=== PATIENT | female | born 2000 | race Caucasian/White ===

== ENCOUNTER → 2020-08-17 14:07 | Outpatient (CLI) | payer OTHER, SELFPAY ==
--- NOTE | ~2020-08-17 | US_ITS ---
EXAMINATION: US pelvic complete w TV DATE: 08/17/2020 14:29 INDICATION: Irregular menstruation, unspecified. Pelvic pain. TECHNIQUE: Multiple transabdominal and transvaginal sonographic images of the pelvis were obtained. COMPARISON: None. FINDINGS: TRANSABDOMINAL ULTRASOUND: The uterus measures 7.9 x 2.7 x 3.3 cm. There is no free fluid in the pelvis. TRANSVAGINAL ULTRASOUND: The endometrial complex measures 7 mm in thickness. The right ovary measures 2.4 x 1.7 x 2.2 cm. The left ovary measures 1.8 x 1.7 x 2.0 cm. There is normal vascular flow in the ovaries. IMPRESSION: 1. Normal pelvis. Reviewed, dictated and finalized at location A. RINTENDENT COMPRESSOR STATIONS IMPRESSION: 1. Normal pelvis.
== END ==
PROVIDERS: Visit Provider Student in an Organized Health Care Education/Training Program
DX: N92.6 Irregular menstruation, unspecified (principal)
CPT/HCPCS: 76830; 76856

== ENCOUNTER 2024-10-29 11:29 | Outpatient (CLI) | payer OTHER, SELFPAY ==
[2024-10-29 12:23] LABS: Hemoglobin A1C 7.2 % (<5.7)
[2024-10-29 12:34] LABS: Vitamin D 25 Hydroxy 25.3 ng/mL
--- OUTSIDE RECORDS SUMMARY | 2024-10-29 12:49 | XMS_ITS | Clinical Summary ---
Author Organization [facility] [employer] Address [address] [place] [address] Care Team Providers Care Shank Rander Name Role Phone Jamie Casper DO Primary Care Provider [phone] Source Comments [facility],non-owned Affiliates and Associated Physician Practices is amultiple site organization consisting of ambulatory clinics and hospital sitesin [place], [place], [place] and [place]. This disclosure is being madepursuant to the Care Everywhere program and may not contain all information available regarding this patient. Last updated 18.[facility] [employer] Allergies No known active allergies Medications * Be aware that medications may not be up to date on this document. Alwaysverify current medications with the patient. Medication Sig Dispensed Refills Start Date End Date Status Jornajacoby PM 100 MG CP24 TAKE 1 CAPSULE BY MOUTH EVERY DAY AT BEDTIME 10/11/2023 Active traZODone (Desyrel) 150 MG tablet Take 1 (one) tablet by mouth 09/12/2023 Active Auvelity 45-105 MG TBCR Take 1 (one) tablet by mouth 2 times daily 09/13/2023 Active Rexulti 1 MG tablet Take 1 (one) tablet by mouth once daily 10/10/2023 Active desmopressin (DDAVP) 0.2 MG tablet Take 2 (two) tablets by mouth at bedtime 09/26/2023 Active lisinopril (Prinivil; Zestril) 10 MG tablet 08/21/2023 Active amLODIPine (Norvasc) 10 MG tablet 07/29/2023 Active prazosin (Minipress) 5 MG capsule TAKE 1 CAPSULE BY MOUTH EVERY DAY AT BEDTIME 09/26/2023 Active prazosin (Minipress) 2 MG capsule 10/16/2023 Active propranolol (Inderal) 20 MG tablet Take 1 (one) tablet by mouth 2 times daily 10/11/2023 Active levonorgestrel (Mirena) 20 MCG/DAY IUD by Intrauterine route as directed Active HYDROcodone-acetam inophen (Carlton) 5-325 MG tabletIndications: S/P placement of VNS (vagus nerve stimulation) device Take 1 (one) tablet by mouth every 6 hours as needed for Pain 20 tablet 11/14/2023 Active Active Problems Problem Noted Date Diagnosed Date Allergic rhinitis 11/12/2023 11/12/2023 Overview (11/12/2023): take medications as prescribed. follow up if symtpms worsening, not controlled, other concerns. Arthralgia of elbow 11/12/2023 11/12/2023 Atopic dermatitis 11/12/2023 11/12/2023 Benign neoplasm of skin 11/12/2023 11/12/19 24 Overview (11/12/2023): offered cosmetic removal but asserted that it must be the child who desires removal. she must understand that a needle will be used to anesthetize the area, the area will be removed and sutured closed. there will be a scar which may be more obvious than the benign appearly nevus. Child decided to wait. Diurnal only enuresis 11/12/2023 11/12/2023 Overview (11/12/2023): Urgency incontinence vs. Infrequent voider Bladder stretching exercises discussed as well as possible use of Oxybutinin. Will pursue renal U/S and VCUG. 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 11/12/2023 Finding of above normal blood pressure 4 11/12/2023 Hyperopia 11/12/2023 11/12/2023 Obesity 11/12/2023 11/12/2023 Regular astigmatism 11/12/2023 11/12/2023 Suppurative otitis media of right ear 11/12/2023 11/12/2023 Overview (11/12/2023): reassure. continue augmentin as prescribed and begin floxin. suggest motrin and or warm compress for comfort and return to clinic after completion of medication course if no improvement. Tooth pain 11/12/2023 11/12/2023 Depression with anxiety 10/18/2023 10/18/19 24 Disruptive behavior disorder 10/18/2023 Overview (11/12/2023): child with trouble sleeping, has worsened since father deployed and started on wellbutrin and concerta. It is likely the medication + father leaving that has created this situation as opposed to an underlying problem that needs treatment. will not order reviewed [facility] rating scales, other information provied by teachers, parents at [facility]. Scores are not consistnent with ADHD nor is desription of child's behaviors. Rather, she seems to demonstatte a significant amount of negative attention seekin Episode of recurrent major depressive disorder 0 10/18/2023 Social History Tobacco Use Types Packs/Day Years Used Date Smoking Tobacco: Never Smokeless Tobacco: Never Tobacco Cessation:Counseling Given: No Alcohol Use Standard Drinks/Week Comments Not Currently 0 (1 standard drink = 0.6 oz pur e alcohol) AUDIT-C Answer Date Recorded Q1: How often do you have a drink containing alcohol? Never 11/14/2023 Q2: How many drinks containi ng alcohol do you have on a typical day when you are drinking? Patient does not drink Q3: How often do you have si x or more drinks on one occasion? Never 11/14/2023 Sex and Gender Information Value Date Recorded Sex Assigned at Female 10/23/2023 10:53 AM INSTRUCTIONAL DESIGN SPECIALIST Gender Identity Female 10/23/2023 10:53 AM INSTRUCTIONAL DESIGN SPECIALIST Sexual Orientation Lesbian 10/23/2023 10 :53 AM INSTRUCTIONAL DESIGN SPECIALIST Last Filed Vital Signs Vital Sign Reading Time Taken Comments Blood Pressure 113/81 11/29/2023 9:34 AM INSTRUCTIONAL DESIGN SPECIALIST Pulse 88 11/29/2023 9:34 AM INSTRUCTIONAL DESIGN SPECIALIST Temperature 36.6 ??C (97.9 ??F) 11/29/2023 9:34 AM CS T Respiratory Rate 18 11/29/2023 9:34 AM INSTRUCTIONAL DESIGN SPECIALIST Oxygen Saturation 97% 11/29/2023 9:34 AM INSTRUCTIONAL DESIGN SPECIALIST Inhaled Oxygen Concentration - - Weight 114 kg (251 lb 6.4 oz) 11/29/2023 9:34 AM INSTRUCTIONAL DESIGN SPECIALIST Height 154.9 cm (5' 1 ) 11/29/2023 9:34 AM INSTRUCTIONAL DESIGN SPECIALIST Body Mass Index 47.5 11/29/2023 9:34 AM INSTRUCTIONAL DESIGN SPECIALIST Plan of Treatment Health Maintenance Due Date Last Done Comments PAP SMEAR 1998 HIV SCREENING 2013 HPV VACCINE (1 - 3-dose series) 2013 HEPATITIS C SCREENING 03/22/2016 DTAP/TDAP/TD VACCINES (1 - Tdap) 2017 HEPATITIS B VACCINE (1 of 3 - 19+ 3-dose series) 2017 COVID-19 VACCINE ( - 2023-2 5 season) 2024 INFLUENZA VACCINE (#1) 2024 DEPRESSION SCREENING 10/01/2024 ZOSTER VACCINE (1 of 2) 2048 HIB VACCINE Aged Out No longer eligi ble based on patient's age to complete this topic MENINGOCOCCAL (Group B) VACCINE Aged Out No longer eligible based on patient's age to complete this topic MENINGOCOCCAL VACCINE Aged Out No vernell danish eligible based on patient's age to complete this topic PNEUMOCOCCAL VACCINE Aged Out No long er eligible based on patient's age to complete this topic Medical Devices Implanted Type Area Entry Operator Device Identifier Shelf Expiration Date Model / Serial / Lot Vns Therapy: Symmetry Implanted:Qty: 1 on 11/14/2023 by Domenico Connolly MD at [facility] Implant Non-Ortho Left: Chest [employer] 10/25/2024 [id number] / [id number] / N/A Description:VNS GENERATOR GMDN: [id number] Lead Nrstm 43cm 2mm Vns Perenniaflex - [id number] Implanted:Qty: 1 on 11/14/2023 by Domenico Connolly MD at [facility] Left: Chest [employer] 304-20 / [id number] / Care Teams Shank Rander Relationship Specialty Start Date End Date Jamie Casper DO PCP - General Family Medicine 10/18/23
--- OUTSIDE RECORDS SUMMARY | 2024-10-29 12:49 | XMS_ITS | Clinical Summary ---
Author Organization [employer] Address [address] [place] [address] Care Team Providers Care Specifications Writer Name Role Phone Jamie Casper DO Primary Care Provider Allergies No known active allergies Medications atenoloL (TENORMIN) 25 mg tablet Active lamoTRIgine (LaMICtal) 200 mg tablet Take 200 mg by mouth 2 (two) times a day Active prazosin (MINIPRESS) 1 mg capsule Take 1 mg by mouth daily Active risperiDONE (RisperDAL) 1 mg tablet Active traZODone (DESYREL) 50 mg tablet Active venlafaxine XR (EFFEXOR-XR) 150 mg 24 hr capsule Active Jornay PM 100 mg capsule,del rel,ext rel sprink TAKE 1 CAPSULE BY MOUTH EVERY DAY AT BEDTIME 024 Active Auvelity 45-105 mg tablet, IR & ER, biphasic Take 1 tablet by mouth 2 (two) times a day [address] (CYMBALTA) 60 mg capsule Take 1 capsule (60 mg total) by mouth daily 10/14/2 022 Active Rexulti 1 mg tablet Take 1 tablet (1 mg total) by mouth daily Active levonorgestreL (Mirena) IUD 1 Intra Uterine Device by intrauterine route once Active lisinopriL (PRINIVIL,ZESTRIL ) 10 mg tablet Take 1 tablet (10 mg total) by mouth daily Active methylphenidate HCl (Jornay PM) 60 mg capsule,del rel,ext rel sprink Take by mouth Active propranoloL (INDERAL) 20 mg tablet Take 1 tablet (20 mg total) by mouth 2 (two) times a day Active cetirizine (ZyrTEC) 10 mg tablet Take 1 tablet (10 mg total) by mouth daily Active ondansetron ODT (ZOFRAN-ODT) 4 mg disintegrating tablet Active prazosin (MINIPRESS) 5 mg capsule Active prazosin (MINIPRESS) 2 mg capsule TAKE 2 CAPSULES AT BEDTIME ORALLY ONCE A DAY. TAKE WITH 5MG CAPSULE FOR 30 DAYS Active traZODone (DESYREL) 100 mg tablet Active galcanezumab-gnlm 120 mg/mL pen injector Inject 120 mg under the skin every 30 (thirty) days 1 mL 5 Active rizatriptan POSTING CLERK (MAXALT-POSTING CLERK) 10 mg disintegrating tabletIndications :Migraine Take 1 tablet (10 mg total) by mouth once as needed for migraine May repeat in 2 hours if unresolved. Do not exceed 30 mg in 24 hours. 9 tablet 5 024 2024 Active ubrogepant (UBRELVY) 100 mg tablet Take 1 tablet (100 mg total) by mouth once as needed for migraine May repeat dose once in 2 hours if no relief. Do not exceed 2 doses in 24 hours. 10 tablet 5 024 2024 Active ubrogepant (Ubrelvy) 100 mg tablet Take 1 tablet (100 mg total) by mouth once as needed for migraine May repeat dose once in 2 hours if no relief. Do not exceed 2 doses in 24 hours. 10 tablet 7 024 2024 Active benzonatate (TESSALON) 100 mg capsuleIndication s:Cough Take 1 capsule (100 mg total) by mouth every 8 (eight) hours 21 capsule 024 Active amLODIPine (NORVASC) 10 mg tablet TAKE 1 TABLET(10 MG) BY MOUTH DAILY 100 tablet 025 Active desmopressin (DDAVP) 0.2 mg tablet TAKE 2 TABLETS(0.4 MG) BY MOUTH DAILY 180 tablet 025 Active amLODIPine (NORVASC) 10 mg tablet TAKE 1 TABLET(10 MG) BY MOUTH DAILY 100 tablet 024 2024 Discontinued desmopressin (DDAVP) 0.2 mg tablet TAKE 2 TABLETS(0.4 MG) BY MOUTH DAILY 180 tablet 024 2024 Discontinued Active Problems Problem Noted Date Diagnosed Date Enuresis 01/09/2024 Routine physical examination 01/09/2024 Overview (01/09/2024): January 26, 2023 Migraine without aura and wi thout status migrainosus, not intractable 01/09/2024 Morbid obesity with BMI of 45.0-49.9, adult 12/31 Overview (01/09/2024): BMI 45 Weight management discussed Essential hypertension 09/25/2019 Overview (01/09/2024): Chronic, stable condition on Norvasc Continue same medications Primary insomnia 09/17/2019 Depression with anxiety 08/14/2013 Overview (01/09/2024): Management and medication refills are per Psychiatry Attention deficit hyperactivity disorder (ADHD) 08/14/2013 Resolved Problems Problem Noted Date Diagnosed Date Resolved Date Non-recurrent acute suppurat rex otitis media of right ear without spontaneous rupture of tympanic membrane 09/02/2020 01/09/2024 Bone neoplasm 10/28/2013 01/09/2024 Encounters Date Type Department Care Team Description 09/15/2024 7:51 PM CURATOR HERBARIUM - 09/15/2024 10:17 PM [facility] Emergency [facility] Emergency Department [address] [place] [id number] COVID-19 (Primary Dx) Discharge Disposition: Discharge to home or self care 08/20/2024 3:00 PM CURATOR HERBARIUM Office Visit [facility] [address] [place] [phone] Leann Clark NP Migraine without aura and without status migrainosus, not intractable (Primary Dx) 08/19/2024 Telephone [facility] [address] [place] [phone] Leann Clark NP Prior Auth (Ubrelvy 100mg) from Last 3 Months Immunizations Name Administration Dates Next Due Influenza LAIV (Nasal) 07/30/2023 Influenza, Quadrivalent, Rec ombinant, Egg Free, Preservative Free, Intramuscular 07/27/2022,08/06/2020 Meningococcal MCV4, Unspecified 06/14/2015 Surgical History Surgery Date Site/Laterality Comments WISDOM TOOTH EXTRACTION MYRINGOTOMY W/ TUBES ADENOIDECTOMY W/ MYRINGOTOMY AND TUBES Medical History Medical History Date Comments Allergic rhinitis Anxiety Depression PTSD (post-traumatic stress disorder) Adhd Hypertension Social History Tobacco Use Types Packs/Day Years Used Date Smoking Tobacco: Never Smokeless Tobacco: Never PHQ-2 Answer Date Recorded PHQ-2 Total Score (If total score is 3 or more points, staff should administer the PHQ-9) 2 01/09/2024 Personal Safety Answer Date Recorded Have you ever been in or are you currently in a harmful physical or emotional relationship or is someone making you feel afraid or unsafe? Denies 09/15/2024 Comments No Sex and Gender Information Value Date Recorded Sex Assigned at Not on file Legal Sex Female 10:41 AM CURATOR HERBARIUM Gender Identity Female 01/08/2024 10:05 AM CDT Sexual Orientation Lesbian 01/08/2024 10 :05 AM CDT Obstetrics History Last Filed Vital Signs Vital Sign Reading Time Taken Comments Blood Pressure 140/88 09/15/2024 10:15 PM CURATOR HERBARIUM Pulse 110 09/15/2024 10:15 PM CURATOR HERBARIUM Temperature 37.7 ??C (99.9 ??F) 09/15/2024 1 0:15 PM CURATOR HERBARIUM Respiratory Rate 18 09/15/2024 10:1 5 PM CURATOR HERBARIUM Oxygen Saturation 97% 09/15/2024 10: 15 PM CURATOR HERBARIUM Inhaled Oxygen Concentration - - Weight 120.7 kg (266 lb 1.5 oz) 09/15/2024 8:06 PM CURATOR HERBARIUM Height 158.8 cm (5' 2.5 ) 08/20/2024 3:00 PM CURATOR HERBARIUM Body Mass Index 47.89 08/20/2024 3:00 PM CURATOR HERBARIUM Plan of Treatment Health Maintenance Due Date Last Done Comments Cervical Cancer Screening 1998 DTaP/Tdap/Td Vaccine (1 - Tdap) 2009 HPV Vaccines (1 - 3-dose series) 2013 Hepatitis B Screening 2016 Regular Well Visit/Exam 18-64 2016 Varicella Vaccines (1 of 2 - 13+ 2-dose series) 08/27/2023 Covid-19 Vaccine (3 - 2023-2 5 season) 2024 01/04/2021, 12/14/2020 Influenza Vaccine (#1) 2024 , 07/27/2022, 08/06/2020 Depression Screening 01/08/2025 01/09/2024 Hepatitis C Screening Completed 01/11/2024 Pneumococcal vaccine <65 Aged Out No longer eligible based on patient's age to complete this topic Procedures Procedure Name Priority Date/Time Associated Diagnosis Comments INFLUENZA A/B, RSV, AND COVID-19 PCR STAT 09/15/2024 8:11 PM CURATOR HERBARIUM HEPATITIS C ANTIBODY Routine 01/11/2024 11:50 AM CDT Need for hepatitis C screening test from Last 3 Months or Most Recently Relevant to Health Maintenance Results * (ABNORMAL) Influenza A/B, RSV, and COVID-19 PCR Nasopharyngeal (09/15/2024 8:11 PM CURATOR HERBARIUM) COVID-19 RNA Positive(A) Negative Comment:Testing performed by : [address] [id number] Influenza A RNA Negative Negative IAN Comment:Testing performed by : [address] [address] Influenza B RNA Negative Negative IAN Comment:Testing performed by : [address] [place]., [address] RSV RNA Negative Negative IAN HUGHES Comment: Interpretive data: Testing performed by [facility]. This test is performed using the [employer] Xpert Xpress CoV-2/Flu/RSV plus assay. This is a multiplex, real-time reverse transcriptase PCR assay intended for the qualitative detection of nucleic acid from SARS-CoV-2, influenza A, influenza B, and respiratory syncytial virus. This assay has been cleared by the [place] Food and Drug administration. The performance characteristics have been verified by the [facility]. ??Results must be considered in the clinical context, and a negative result does not rule out infection. Interpretive Data last revised 2023 Testing performed by: [address] [address] Nasopharyngeal 09/15/2024 8: 11 PM CURATOR HERBARIUM 09/15/2024 8:19 PM CURATOR HERBARIUM Narrative IAN - 09/15/2024 9:01 PM CURATOR HERBARIUM Is the Patient experiencing symptoms consistent with COVID?->Yes Brenda ALMEIDA LAB MICROBIOLOGY - GENERAL OR DERABLES Final Result IAN [id number] [facility] Department [place] [address] * Hepatitis C antibody Blood (01/11/2024 11:50 AM CDT) Pathologist [facility] Hep C Ab Nonreactive Nonreactive Comment: Antibodies to HCV not detected. Does NOT exclude the possibility of recent exposure to HCV. Current interpretive data was last revised on 22 Interpretive Data Nonreactive: Antibodies to HCV not detected. Does NOT exclude the possibility of recent exposure to HCV. Equivocal: Equivocal for HCV antibodies. Supplemental molecular testing will be automatically performed to determine infection status in accordance with current CDC screening recommendations. ?? Reactive: Positive for HCV antibodies. ??This may represent current or past HCV infection. Supplemental molecular testing will be automatically performed to determine ??current infection status in accordance with current CDC screening recommendations. Interpretive data was last revised on 2019. Blood 01/11/2024 11:5 0 AM CDT 01/11/2024 4:29 PM CDT us Jamie Casper DO LAB MICROBIOLOGY - GEN ERAL ORDERABLES Final Result Performing Organization Address City/State/[facility] Co wy Phone Number [facility] [address] [facility] [place] [address] from Last 3 Months or Most Recently Relevant to Health Maintenance Insurance [facility] H[facility]/PPO Address: [address] [address] [place] [address] [employer] ([employer]) FOR LIFE [facility] [employer] [facility]/PPO Address: [place] [address] Care Teams Specifications Writer Relationship Specialty Start Date End Date Jamie Casper DO PCP - General Family Practice 08/18/20
--- OUTSIDE RECORDS SUMMARY | 2024-10-29 12:49 | XMS_ITS | Referral Summary ---
Author Organization [facility] [address] [place] [address] Care Team Providers Care Credit Report Checker Name Role Phone Jamie Casper DO Primary Care Provider Encounters Date Type Department Care Team Description 09/15/2024 7:51 PM POLICE OFFICER CRIME PREVENTION - 09/15/2024 10:[address] [facility] Emergency [facility] Emergency Department [facility] [place] [address] COVID-19 (Primary Dx) Discharge Disposition: Discharge to home or self care 08/20/2024 3:00 PM POLICE OFFICER CRIME PREVENTION Office Visit [facility] [address] [place] [address] [phone] Leann Clark NP Migraine without aura and without status migrainosus, not intractable (Primary Dx) 08/19/2024 Telephone [facility] [address] [place] [address] [phone] Leann Clark NP Prior Auth (Ubrelvy 100mg) from Last 3 Months Allergies No known active allergies Medications atenoloL (TENORMIN) 25 mg tablet 020 Active lamoTRIgine (LaMICtal) 200 mg tablet Take [...] CAPSULE BY MOUTH EVERY DAY AT BEDTIME Active Auvelity 45-105 mg tablet, IR & ER, biphasic Take 1 tablet by mouth 2 (two) times a day Active DULoxetine DR (CYMBALTA) 60 mg capsule Take 1 capsule (60 mg total) by mouth daily Active Rexulti 1 mg tablet Take 1 [...] (thirty) days 1 mL 5 Active rizatriptan SWITCHBOARD OPERATOR ASSISTANT (MAXALT-SWITCHBOARD OPERATOR ASSISTANT) 10 mg disintegrating tabletIndications :Migraine Take 1 [...] membrane 09/02/2020 01/09/2024 Bone neoplasm 10/28/2013 01/09/2024 Immunizations Name Administration Dates Next Due Influenza LAIV (Nasal) 07/30/2023 Influenza, Quadrivalent, Rec ombinant, Egg Free, Preservative Free, Intramuscular 07/27/2022,08/06/2020 Meningococcal MCV4, Unspecified 06/14/2015 Social History Tobacco Use Types Packs/Day Years [...] on file Legal Sex Female 10:41 AM POLICE OFFICER CRIME PREVENTION Gender Identity Female 01/08/2024 10:05 AM CDT Sexual Orientation Lesbian 01/08/2024 10 :05 AM CDT Last Filed Vital Signs Vital Sign Reading Time Taken Comments Blood Pressure 140/88 09/15/2024 10:15 PM POLICE OFFICER CRIME PREVENTION Pulse 110 09/15/2024 10:15 PM POLICE OFFICER CRIME PREVENTION Temperature 37.7 ??C (99.9 ??F) 09/15/2024 1 0:15 PM POLICE OFFICER CRIME PREVENTION Respiratory Rate 18 09/15/2024 10:1 5 PM POLICE OFFICER CRIME PREVENTION Oxygen Saturation 97% 09/15/2024 10: 15 PM POLICE OFFICER CRIME PREVENTION Inhaled Oxygen Concentration - - Weight 120.7 kg (266 lb 1.5 oz) 09/15/2024 8:06 PM POLICE OFFICER CRIME PREVENTION Height 158.8 cm (5' 2.5 ) 08/20/2024 3:00 PM POLICE OFFICER CRIME PREVENTION Body Mass Index 47.89 08/20/2024 3:00 PM POLICE OFFICER CRIME PREVENTION Plan of Treatment Not on file Procedures Procedure Name Priority Date/Time Associated Diagnosis Comments INFLUENZA A/B, RSV, AND COVID-19 PCR STAT 09/15/2024 8:11 PM POLICE OFFICER CRIME PREVENTION HEPATITIS C ANTIBODY Routine 01/11/2024 11:50 AM CDT Need for hepatitis C screening test from Last 3 Months or Most Recently Relevant to Health Maintenance Results * (ABNORMAL) Influenza A/B, RSV, and COVID-19 PCR Nasopharyngeal (09/15/2024 8:11 PM POLICE OFFICER CRIME PREVENTION) COVID-19 RNA Positive(A) Negative Comment:Testing performed by : [address] [id number] Influenza A RNA Negative Negative [facility] Comment:Testing performed by : [address] [address] Influenza B RNA Negative Negative [facility] Comment:Testing performed by : [address] [address] RSV RNA Negative Negative [facility] Comment: Interpretive data: Testing performed by [facility]. This test is performed using the [employer] Xpert Xpress CoV-2/Flu/RSV plus assay. This is a multiplex, real-time reverse transcriptase PCR assay intended for the qualitative detection of nucleic acid from SARS-CoV-2, influenza A, influenza B, and respiratory syncytial virus. This assay has been cleared by the [place] Food and Drug administration. The performance characteristics have been verified by the [facility]. ??Results must be considered in the clinical context, and a negative result does not rule out infection. Interpretive Data last revised 2023 Testing performed by: [address] [address] Nasopharyngeal 09/15/2024 8: 11 PM POLICE OFFICER CRIME PREVENTION 09/15/2024 8:19 PM POLICE OFFICER CRIME PREVENTION Narrative IAN - 09/15/2024 9:01 PM POLICE OFFICER CRIME PREVENTION Is the Patient experiencing symptoms consistent with COVID?->Yes Brenda ALMEIDA LAB MICROBIOLOGY - GENERAL OR DERABLES Final Result Performing Organization Address City/[facility]/ZIP Co de Phone Number IAN [address] [place] [address] * Hepatitis C antibody Blood (01/11/2024 11:50 AM CDT) Hep C Ab Nonreactive Nonreactive Comment: Antibodies [...] 0 AM CDT 01/11/2024 4:29 PM CDT Jamie Casper DO LAB MICROBIOLOGY - GEN ERAL ORDERABLES Final Result Performing Organization Address [facility] Co de Phone Number IAN [address] [place] [address] from Last 3 Months or Most Recently Relevant to Health Maintenance Insurance [facility] CHO[facility] PL[facility] FOR LIFE [facility] CHO[facility] PLUS Care Teams Credit Report Checker Relationship Specialty Start Date End Date Jamie Casper DO PCP - General Family Practice 08/18/20
--- OUTSIDE RECORDS SUMMARY | 2024-10-29 12:49 | XMS_ITS | Referral Summary ---
Author Organization [facility] [employer] Address [address] [place] [address] Care Team Providers Care Geospatial Technician Name Role Phone Jamie Casper DO Primary Care Provider [phone] [facility],non-owned Affiliates and Associated Physician Practices is amultiple site organization consisting of ambulatory clinics and hospital sitesin [place], [place], [place] and [place]. This disclosure is being madepursuant to the Care Everywhere program and may not contain all information available regarding this patient. Last updated 18.[facility] [employer] Allergies No known active allergies Medications * [...] Intrauterine route as directed Active HYDROcodone-acetam inophen ([place]) 5-325 MG tabletIndications: S/P placement of VNS [...] that needs treatment. will not order reviewed [facility] rating scales, other information provied by teachers, parents at [facility]. Scores are not consistnent with ADHD nor [...] Sex Assigned at Female 10/23/2023 10:53 AM GAS JOCKEY Gender Identity Female 10/23/2023 10:53 AM GAS JOCKEY Sexual Orientation Lesbian 10/23/2023 10 :53 AM GAS JOCKEY Last Filed Vital Signs Vital Sign Reading Time Taken Comments Blood Pressure 113/81 11/29/2023 9:34 AM GAS JOCKEY Pulse 88 11/29/2023 9:34 AM GAS JOCKEY Temperature 36.6 ??C (97.9 ??F) 11/29/2023 9:34 AM CS T Respiratory Rate 18 11/29/2023 9:34 AM GAS JOCKEY Oxygen Saturation 97% 11/29/2023 9:34 AM GAS JOCKEY Inhaled Oxygen Concentration - - Weight 114 kg (251 lb 6.4 oz) 11/29/2023 9:34 AM GAS JOCKEY Height 154.9 cm (5' 1 ) 11/29/2023 9:34 AM GAS JOCKEY Body Mass Index 47.5 11/29/2023 9:34 AM GAS JOCKEY Plan of Treatment Not on file Medical Devices Implanted Type Area Income Tax Analyst Device Identifier Shelf Expiration Date Model / Serial / Lot Vns Therapy: Symmetry Implanted:Qty: 1 on 11/14/2023 by Domenico Connolly MD at [facility] Implant Non-Ortho Left: Chest [employer] 10/25/2024 [id number] / [id number] / N/A Description:VNS GENERATOR GMDN: [id number] Lead Nrstm 43cm 2mm Vns Perenniaflex - [id number] Implanted:Qty: 1 on 11/14/2023 by Domenico Connolly MD at [facility] Left: Chest [employer] 304-20 / [id number] / Care Teams Geospatial Technician Relationship Specialty Start Date End Date Jamie Casper DO PCP - General Family Medicine 10/18/23
--- OUTSIDE RECORDS SUMMARY | 2024-10-29 12:49 | XMS_ITS | Clinical Summary ---
Author Organization [facility] Address Formerly [facility] [place] [address] [place] [address] Care Team Providers Care Geology Professor Name Role Phone Jamie Casper DO Primary Care Provider Allergies No known active allergies Medications levonorgestrel (MIRENA, 52 MG,) 20 MCG/24HR IUD 1 Intra Uterine Device by Intrauterine route once. Active propranolol (INDERAL) 10 MG tablet 1 tablet 2 (two) times daily. 07/22/20 Active prazosin (MINIPRESS) 1 MG capsule Take 1 mg by mouth nightly at bedtime. 07/14/20 Active prazosin (MINIPRESS) 5 MG capsule Take 9 mg by mouth nightly at bedtime. 07/22/20 22 Active traZODone (DESYREL) 150 MG tablet 0.5 tablets (75 mg total) nightly at bedtime. 07/22/20 Active Methylphenidate HCl ER, PM, (JORNAY PM) 60 MG CAPSULE SR 24 HR Take 100 mg by mouth. Active amLODIPine (NORVASC) 10 MG tabletIndications: Essential hypertension TAKE 1 TABLET(10 MG) BY MOUTH DAILY 90 tablet 1 04/16/20 23 Active desmopressin (DDAVP) 0.2 MG tabletIndications: Enuresis TAKE 2 TABLETS BY MOUTH AT BEDTIME 180 tablet 1 04/16/20 Active REXULTI 0.5 MG tablet Take 2 tablets (1 mg total) by mouth daily. 06/15/20 Active Dextromethorphan-b uPROPion ER (AUVELITY) 45-105 MG Tab CR Take 150 mg by mouth 2 (two) times a day. Active rizatriptan (MAXALT-MACHINE HEEL BUILDER) 5 MG disintegrating tablet Take 1 tablet (5 mg total) by mouth as needed for Migraine. May repeat in 2 hours if needed Active cetirizine (ZYRTEC) 10 MG tablet Take 1 tablet (10 mg total) by mouth daily. 30 tablet 01/24/20 Active Additional Information Patient not taking.Reported on 04/12/2024 fluticasone propionate (FLONASE) 50 MCG/ACT nasal spray 1 spray by Each Nostril route daily. 18.2 mL 01/24/20 Active Additional Information Patient not taking.Reported on 04/12/2024 ondansetron (ZOFRAN-ODT) 4 MG disintegrating tablet Take 1 tablet (4 mg total) by mouth every 8 (eight) hours as needed. 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 Enuresis 09/06/2015 Allergic rhinitis 08/14/2013 Attention deficit hyperactivity disorder (ADHD) 08/14/2013 Depression with anxiety 08/14/2013 Eczema 08/14/2013 Resolved Problems Problem Noted Date Diagnosed Date Resolved Date Encounter for preventive health examination 08/14/2013 06/11/2020 Encounters Date Type Department Care Team Description 08/12/2024 10:47 AM WELL BLOWER - 08/12/2024 12:14 PM WELL BLOWER Hospital Encounter [facility] Care [facility] [place] [address] Alicia Sauceda, DATA CENTER TECHNICIAN Headache Discharge Disposition: Home or Self Care (Routine Discharge) 08/12/2024 Travel from Last 3 Months Immunizations Name Administration Dates Next Due Flublok (Quadrivalent) 07/27/2022,08/06/2020 Meningococcal Vac A,C,Y,W-135 Sc 06/14/2015 Family History Medical History Relation Comments Hypertension Father Hypertension Maternal Grandfather Diabetes Maternal Grandmother Cancer Mother cervical or ovar krystle Hypertension Mother Coronary artery disease Paternal Grandfather ID Paternal Grandfather Relation Status Comments Father Alive Maternal Grandfather Maternal Grandmother Mother Alive Paternal Grandfather Social History Tobacco Use Types Packs/Day Years Used Date Smoking Tobacco: Former Passive Smoke Exposure: Never Smokeless Tobacco: Never Tobacco Cessation:Counseling Given: Not Answered Alcohol Use Standard Drinks/Week Comments Yes 0 (1 standard drink = 0.6 oz pur e alcohol) rare use PHQ-2 Answer Date Recorded Patient Health Questionnaire-2 Score 2 01/26/2023 Comments No Sex and Gender Information Value Date Recorded Sex Assigned at Not on file Legal Sex Female 7:39 PM CDT Gender Identity Female 06/16/2022 5:37 AM CDT Sexual Orientation Lesbian or Carey 06/16/2022 5: 37 AM CDT Last Filed Vital Signs Vital Sign Reading Time Taken Comments Blood Pressure 134/90 08/12/2024 10:51 AM WELL BLOWER Pulse 112 08/12/2024 10:51 AM WELL BLOWER Temperature 36.7 ??C (98 ??F) 08/12/2024 10:51 AM WELL BLOWER Respiratory Rate 18 08/12/2024 10:51 AM WELL BLOWER Oxygen Saturation 99% 08/12/2024 10:51 AM WELL BLOWER Inhaled Oxygen Concentration - - Weight 108.9 kg (240 lb) 08/12/2024 10:51 AM WELL BLOWER Height 160 cm (5' 3 ) 08/12/2024 10:51 AM WELL BLOWER Body Mass Index 42.51 08/12/2024 10:51 AM WELL BLOWER Plan of Treatment Health Maintenance Due Date Last Done Comments Cervical Cancer Screening Pap Smear (Age 21 to 29) Every 3 Years 1998 Cervical Cancer Screening 1998 HPV Vaccines (1 - 3-dose series) 2013 DTaP, Tdap and Td Vaccines (1 - Tdap) 2017 Hepatitis B Vaccines (1 of 3 - 19+ 3-dose series) 2017 Annual Physical 01/27/2024 01/26/2023, 11/02, 10/20/2020, Additional history exists COVID-19 Vaccine ( season) 2024 01/04/2021, 12/14/2020 Influenza Adult (#1) 2024 07/30/2023, 07/27/2022, 08/06/2020 Meningococcal Vaccine Aged Out 06/14/2015 No vernell danish eligible based on patient's age to complete this topic Hepatitis C Completed 01/11/2024 Meningococcal B Vaccine Aged Out No l onger eligible based on patient's age to complete this topic Pneumococcal Vaccine: Pediatrics (0 to 5 Years) and At-Risk Patients (6 to 64 Years) Aged Out No longer eligible based on patient's age to complete this topic RSV Immunizations Under 20 Months Aged Out No longer eligible based on patient's age to complete this topic Insurance [facility] Care Teams Geology Professor Relationship Specialty Start Date End Date Jamie Casper DO PCP - General 08/20/15
--- OUTSIDE RECORDS SUMMARY | 2024-10-29 12:49 | XMS_ITS | Patient Health Record ---
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 Name Role Phone Jamie Casper DO Primary Care Provider Paddy Santos Unavailable [phone] Briana Grant Unavailable [phone] Migration, Provider Unavailable Unavailable Allergies No Known Allergies Results Component Value Reference Range Notes DRUG SCREEN, 14 DRUGS (DETEC TIMED), URINE Reviewed date:11/07/2023 12:00:00 AM Interpretation: Performing Lab: Notes/Report: Amphetamine negative Barbiturates negative Benzodiazipine negative Buprenorphine negative Cocaine negative MDMA/Ectasy negative Methadone negative Methamphetamine negative Morphine negative note ALL NEGATIVE Oxycodone negative Phenocyclidine negative THC negative DRUG SCREEN, 14 DRUGS (DETEC TIMED), URINE Reviewed date:12/05/2023 12:00:00 AM Interpretation: Performing Lab: Notes/Report: Amphetamine negative Barbiturates negative Benzodiazipine negative Buprenorphine negative Cocaine negative MDMA/Ectasy negative Methadone negative Methamphetamine negative Morphine negative note ALL NEGATIVE Oxycodone negative Phenocyclidine negative THC negative UDT Reviewed date:03/14/2024 09:24:04 AM Interpretation: Performing Lab: Notes/Report: THC negative 0 - 50 ng/ml Cocaine negative Amphetamine negative Buprenorphine (BUP) negative Secobarbital (Bar) negative Oxazepam (BZO) negative 8-qcnbeowfan-9,4-kcjynogn-9, 3-diphenylpyrrolidine (EDDP) negative Methamphetamine (MET) negative Methylenedioxymethamphetamine (MDMA) negative Morphine (MOP 300/[id number]) negative Methadone (MTD) negative Phencyclidine (PCP) negative Propoxyphene (PPX) negative Nortriptyline (TCA) negative UDT Reviewed date:05/09/2024 11:56:01 AM Interpretation: Performing Lab: Notes/Report: THC N 0 - 50 ng/ml Cocaine N 0 - 300 ng/ml Amphetamine N 0 - 1000 ng/ml Buprenorphine (BUP) N 0 - 10 ng/ml Secobarbital (Bar) N 0 - 300 ng/ml Oxazepam (BZO) N 0 - 300 ng/ml 0-gnrjbdflfi-7,8-vmdhnnas-6, 3-diphenylpyrrolidine (EDDP) N 0 - 300 ng/ml Methamphetamine (MET) N 0 - 1000 ng/ml Methylenedioxymethamphetamine (MDMA) N 0 - 500 ng/ml Morphine (MOP 300/[id number]) N 0 - 300 ng/ml Methadone (MTD) N 0 - 300 ng/ml Phencyclidine (PCP) N 0 - 25 ng/ml Propoxyphene (PPX) N 0 - 300 ng/ml Nortriptyline (TCA) N 0 - 1000 ng/ml Oxycodone N 0 - 300 ng/ml Reason For Referral No Information Medications Medication SIG (Take, Route, Frequency, Duration) Notes Start Date End Date Status Auvelity 45-105 MG 1 tablet Oral twice a day for 30 days *Reorder from PCA Audit for eRx and Interaction Alerts* Active traZODone HCl 100 MG 1 tablet Oral Once a day for 90 days Active Rexulti 1 mg 1 tablet Oral once daily for 30 days Active Jornay PM 100 MG 1 capsule in the evening Oral Once a day for 30 days 10/08/2024 Active Prazosin HCl 5 MG 2 capsules at bedtime Oral Once a day for 30 days Active traZODone HCl 100 MG TAKE 1 TABLET BY MOUTH ONCE DAILY for 90 Active Propranolol HCl 20 MG 1 tablet Oral Twice a day for 30 days Active busPIRone HCl 7.5 MG 1 tablet Orally Twice a day for 30 days Active Lisinopril 10 MG Oral 01/25/2024 Ac tive amLODIPine Besylate 10 MG Oral 01/25/2024 Active Emgality (300 MG Dose) 100 MG/ML 3 mL Subcutaneous monthly 08/01/2024 Active Immunizations Vaccine Route Administration Date Status Comme [facility] Pfizer [employer]ion[employer] Covid-19 Vac cine 2nd dose Unknown 12/14/2020 Administered Pfizer [employer]ion[employer] Covid-19 Vac cine 2nd dose Unknown 01/04/2021 Administered Influenza virus vaccine, quadrivalent (IIV4), split virus, 0.25 mL dosage Unknown 08/06/2020 Administered Social History Tobacco Use: Social History Observation Description Date Details (start date - stop date) Never Smoker NA - NA Sex Assigned At : Social History Observation Description Sex Assigned At Female Tobacco Control (Standard) Question Answer Notes Tobacco use: Nonsmoker AUDIT-C (Standard) Question Answer Notes Did you have a drink contain ing alcohol in the past year? Yes How often did you have six o r more drinks on one occasion in the past year? Less than monthly (1 point) How many drinks did you have on a typical day when you were drinking in the past year? 1 or 2 drinks (0 point) How often did you have a dri nk containing alcohol in the past year? 2 to 4 times a month (2 points) Problems Problem Type SNOMED Code ICD Code Onset Dates Problem Status W/U Status Risk Notes Problem Severe recurrent major depression without psychotic features (54462219) Major depressive disorder, recurrent severe without psychotic features (F33.2) 01/25/20 24 Active confirmed Problem Generalized anxiety disorder (44865322) Generalized anxiety disorder (F41.1) 01/25/20 24 Active confirmed Problem Post-traumatic stress disorder (45374340) Post-traumatic stress disorder, unspecified (F43.10) 01/25/20 24 Active confirmed Problem Insomnia disorder related to another mental disorder (33418082) Insomnia due to other mental disorder (F51.05) 01/25/20 24 Active confirmed Problem Attention deficit hyperactivity disorder, predominantly inattentive type (59453254) Attention-deficit hyperactivity disorder, predominantly inattentive type (F90.0) 02/11/20 24 Active confirmed Problem 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.89) Active confirmed Vital Signs Heart Rate 90 /min 10/08/2024 Height-cm 154.94 cm 10/08/2024 Blood pressure diastolic 94 mm Hg 10/08/2024 Weight-kg 120.2 kg 10/08/2024 Height 61.00 in 10/08/2024 Blood pressure systolic 130 mm Hg 10/08/2024 Weight 265.0 lbs 10/08/2024 BMI 50.07 kg/m2 10/08/2024 Encounters Encounter Location Date Provider Diagnosis [facility] [place] [id number] [facility] [address] [address] 11/07/2023 Paddy Hargrove Generalized anxiety disorder F41.1 ; Post-traumatic stress disorder, unspecified F43.10 ; Attention-deficit hyperactivity disorder, predominantly inattentive type F90.0 ; Major depressive disorder, recurrent severe without psychotic features F33.2 ; Insomnia due to other mental disorder F51.05 and Post-traumatic stress disorder, chronic F43.[address] [address] 11/13/2023 Provider Migration Post-traumatic stres s disorder, unspecified F43.10 [facility] [address] [address] 12/05/2023 Paddy Hargrove Major depressive disorder, recurrent severe without psychotic features F33.2 ; Post-traumatic stress disorder, chronic F43.12 ; Insomnia due to other mental disorder F51.05 ; Post-traumatic stress disorder, unspecified F43.10 ; Attention-deficit hyperactivity disorder, predominantly inattentive type F90.0 and Generalized anxiety disorder F41.1 [facility] [place] [address] [facility] [address] [address] 12/26/2023 Briana Dashrkstephan Post-traumatic stres s disorder, chronic F43.12 ; Major depressive disorder, recurrent severe without psychotic features F33.2 ; Post-traumatic stress disorder, unspecified F43.10 ; Generalized anxiety disorder F41.1 ; Attention-deficit hyperactivity disorder, predominantly inattentive type F90.0 and Insomnia due to other mental disorder F51.05 [facility] [place] [address] [facility] [address] [address] 01/14/2024 Provider Migration Post-traumatic stres s disorder, unspecified F43.10 and Generalized anxiety disorder F41.1 [facility] [place] [address] [facility] [address] [address] 01/25/2024 Paddy Hargrove Post-traumatic stres s disorder, unspecified F43.10 ; Insomnia due to other mental disorder F51.05 ; Attention-deficit hyperactivity disorder, predominantly inattentive type F90.0 ; Generalized anxiety disorder F41.1 ; Post-traumatic stress disorder, chronic F43.12 and Major depressive disorder, recurrent severe without psychotic features F33.2 [facility] [employer] [facility] [address] [place] [address] 02/11/2024 [facility] Attention-deficit hyperactivity disorder, predominantly inattentive type F90.0 [facility] [employer] [facility] [address] [place] [address] 03/14/2024 Paddy Hargrove Major depressive disorder, recurrent severe without psychotic features F33.2 ; Attention-deficit hyperactivity disorder, predominantly inattentive type F90.0 ; Post-traumatic stress disorder, unspecified F43.10 ; Insomnia due to other mental disorder F51.05 ; Generalized anxiety disorder F41.1 and Other nurse companion (current) drug therapy Z79.899 [facility] [employer] [facility] [address] [place] [address] 04/11/2024 Paddy Hargrove Major depressive disorder, recurrent severe without psychotic features F33.2 ; Attention-deficit hyperactivity disorder, predominantly inattentive type F90.0 ; Post-traumatic stress disorder, unspecified F43.10 ; Insomnia due to other mental disorder F51.05 ; Generalized anxiety disorder F41.1 and Other senior care (current) drug therapy Z79.899 [facility] [employer] [facility] [address] [facility] [address] [place] [address] 05/09/2024 Paddy Hargrove Major depressive disorder, recurrent severe without psychotic features F33.2 ; Attention-deficit hyperactivity disorder, predominantly inattentive type F90.0 ; Post-traumatic stress disorder, unspecified F43.10 ; Insomnia due to other mental disorder F51.05 ; Generalized anxiety disorder F41.1 and Other nurse companion (current) drug therapy Z79.899 [employer] [facility] [address] [place] [address] 06/06/2024 Paddy Hargrove Major depressive disorder, recurrent severe without psychotic features F33.2 ; Attention-deficit hyperactivity disorder, predominantly inattentive type F90.0 ; Post-traumatic stress disorder, unspecified F43.10 ; Insomnia due to other mental disorder F51.05 ; Generalized anxiety disorder F41.1 ; Other senior care (current) drug therapy Z79.899 and Status post placement of VNS (vagus nerve stimulation) device Z96.89 [employer] [address] [facility] [address] [place] [address] 07/04/2024 Paddy Hargrove Major depressive disorder, recurrent severe without psychotic features F33.2 ; Attention-deficit hyperactivity disorder, predominantly inattentive type F90.0 ; Post-traumatic stress disorder, unspecified F43.10 ; Insomnia due to other mental disorder F51.05 ; Generalized anxiety disorder F41.1 ; Other nurse companion (current) drug therapy Z79.899 and Status post placement of VNS (vagus nerve stimulation) device Z96.89 [employer] [address] [place] [address] 08/01/2024 Paddy Hargrove Major depressive disorder, recurrent severe without psychotic features F33.2 ; Attention-deficit hyperactivity disorder, predominantly inattentive type F90.0 ; Post-traumatic stress disorder, unspecified F43.10 ; Insomnia due to other mental disorder F51.05 ; Generalized anxiety disorder F41.1 ; Other senior care (current) drug therapy Z79.899 and Status post placement of VNS (vagus nerve stimulation) device Z96.89 [employer] [address] [address] 08/27/2024 Paddy Hargrove Major depressive disorder, recurrent severe without psychotic features F33.2 ; Attention-deficit hyperactivity disorder, predominantly inattentive type F90.0 ; Post-traumatic stress disorder, unspecified F43.10 ; Insomnia due to other mental disorder F51.05 ; Generalized anxiety disorder F41.1 ; Other senior care (current) drug therapy Z79.899 and Status post placement of VNS (vagus nerve stimulation) device Z96.89 [employer] [address] [place] [address] 10/08/2024 Paddy Hargrove Major depressive disorder, recurrent severe without psychotic features F33.2 ; Attention-deficit hyperactivity disorder, predominantly inattentive type F90.0 ; Post-traumatic stress disorder, unspecified F43.10 ; Insomnia due to other mental disorder F51.05 ; Generalized anxiety disorder F41.1 ; Other nurse companion (current) drug therapy Z79.899 and Status post placement of VNS (vagus nerve stimulation) device Z96.89 [facility], [facility] [address] [place] [address] 10/29/2023 Provider [facility], [facility] [address] [place] [address] 11/02/2023 Provider [facility], [facility] [address] [place] [address] 11/05/2023 Provider [facility], [facility] [address] [place] [address] 11/13/2023 Provider [facility], [facility] [address] [place] [address] 11/26/2023 Provider Migration [facility], [facility] [address] [place] [address] 12/05/2023 Provider [facility], [facility] [address] [place] [address] 12/06/2023 Provider Migration [facility], [facility] [address] [place] [address] 12/31/2023 Provider [facility], [facility] [address] [place] [address] 01/04/2024 Provider [facility], [facility] [address] [place] [address] 01/12/2024 Provider [facility], [facility] [address] [place] [address] 01/30/2024 Provider [facility], [facility] [address] [place] [address] 02/10/2024 Provider Migration [facility], [facility] [address] [place] [address] 02/11/2024 Provider [facility], [facility] [address] [place] [address] 02/13/2024 Provider [facility], [facility] [address] [place] [address] 02/16/2024 Provider [facility], [facility] [address] [place] [address] 02/17/2024 Provider [facility], [facility] [address] [place] [address] 06/10/2024 Paddymarlen Coxa [facility], [facility] [address] [place] [address] 07/04/2024 Paddymarlen Hargrove Major depressive disorder, recurrent severe without psychotic features F33.2 [facility] [address] [place] [address] 04/03/2024 Paddymarlen Coxa [facility] [address] [place] [address] 04/07/2024 Paddymarlen Coxa [facility] [address] [place] [address] 04/12/2024 Paddymarlen Hargrove Generalized anxiety disorder F41.1 [facility] [address] [place] [address] 06/18/2024 Paddymarlen Hargrove Attention-deficit hyperactivity disorder, predominantly inattentive type F90.0 and Major depressive disorder, recurrent severe without psychotic features F33.2 Assessments Encounter Date Diagnosis (ICD Code) Assessment Notes Treatment Notes Treatment Clinical Notes Section Notes 03/14/2024 Major depressive disorder, recurrent severe without psychotic features (ICD-10 - F33.2) VNS Interrogated and adjusted VNS Therapy- implanted 11/14/23 DEVICE- Symmetry [id number] SERIAL NUMBER- [id number] Normal Mode Output current-0.75mA Frequency- 20Hz Pulse width-250uSec On time-30sec Off time-5 min Duty Cycle-10 Magnet mode Output Current- 0.5mA Pulse Width- 250uSec On time-30 sec tolerating VNS well 03/14/2024 Attention-defici t hyperactivity disorder, predominantly inattentive type (ICD-10 - F90.0) VNS Interrogated and adjusted VNS Therapy- implanted 11/14/23 DEVICE- Symmetry M8103 SERIAL NUMBER- [id number] Normal Mode Output current-0.75mA Frequency- 20Hz Pulse width-250uSec On time-30sec Off time-5 min Duty Cycle-10 Magnet mode Output Current- 0.5mA Pulse Width- 250uSec On time-30 sec tolerating VNS well 04/12/2024 Generalized anxiety disorder (ICD-10 - F41.1) 05/09/2024 Major depressive disorder, recurrent severe without psychotic features (ICD-10 - F33.2) auvelity 45mg -105mg bid, rexulti 1mg daily VNS Interrogated and adjusted VNS Therapy- implanted 11/14/23 DEVICE- Symmetry M8103 SERIAL NUMBER- [id number] Normal Mode Output current-1.25mA Frequency- 20Hz Pulse width-250uSec On time-30sec Off time-5 min Duty Cycle-10 Magnet mode Output Current- 0.5mA Pulse Width- 250uSec On time-30 sec 1. Major Depressive Disorder, severe: - Continue Auvelity 45 mg, 105 mg twice a day - Continue Rexulti 1 mg daily - Continue VNS therapy Plan: - Monitor response to medications and VNS therapy - Follow up in one month 2. ADHD, primarily inattentive type: - Continue Journey 100 mg at bedtime Plan: - Monitor response to medication - Follow up in one month 3. PTSD nightmares: - Continue Prazosin 5 mg (two at bedtime) Plan: - Monitor response to medication - Follow up in one month 4. Insomnia: - Continue Trazodone 100 mg at bedtime Plan: - Monitor sleep patterns and response to medication - Follow up in one month 5. Migraines: Plan: - Patient to contact PCP for referral to a specialist - Monitor frequency and severity of migraines - Follow up in one month 6. VNS-related pain: Plan: - Schedule follow-up with surgeon - Monitor pain and discomfort related to VNS - Follow up in one month 7. Medication adherence: Plan: - Encourage consistent use of the month-long pill demand planner - Monitor medication adherence and effectiveness - Follow up in one month 8. Counseling: Plan: - Continue therapy - Plan trauma treatment once the patient reaches a better baseline - Follow up in one month 04/11/2024 Major depressive disorder, recurrent severe without psychotic features (ICD-10 - F33.2) auvelity 45mg -105mg bid, rexulti 1mg daily VNS Interrogated and adjusted VNS Therapy- implanted 11/14/23 DEVICE- Symmetry M8103 SERIAL NUMBER- [id number] Normal Mode Output current-1.0mA Frequency- 20Hz Pulse width-250uSec On time-30sec Off time-5 min Duty Cycle-10 Magnet mode Output Current- 0.5mA Pulse Width- 250uSec On time-30 sec VNS Interrogated and adjusted 06/06/2024 Major depressive disorder, recurrent severe without psychotic features (ICD-10 - F33.2) auvelity 45mg -105mg bid, rexulti 1mg daily 1. Major Depressive Disorder: - Patient reports fewer depressive episodes since starting VNS therapy. - Plan: - Continue current medications: Auvelity 45 mg -105mg twice a day, Rexulti 1 mg daily. - Monitor for any changes in mood or suicidal thoughts. 2. Migraines: - Patient reports an increase in migraines, currently working with a neurologist to control them. - Plan: - Monitor the effectiveness of the new migraine medication (Emgality) prescribed by the neurologist. 3. VNS Therapy: - Patient reports improvement in depression symptoms since starting VNS. - VNS output increased from 1.25 to 1.5 during the visit. - Plan: - Continue to monitor VNS therapy progress and make adjustments as needed. 4. ADHD: - Plan: - Continue current medication: JournA 100 mg every evening. - Monitor for any changes in attention or focus. 5. Nightmares: - Plan: - Continue current medication: Prazosin 10 mg at bedtime. - Monitor for any changes in sleep quality or frequency of nightmares. 6. Insomnia: - Patient reports difficulty staying asleep with Trazodone 100 mg at bedtime. - Plan: - Continue current medication and monitor for any changes in sleep patterns. - Consider adjusting the dose or exploring alternative medications if sleep issues persist. 7. Living Situation and Mental Health: - Patient reports a significant negative impact on mental health due to the current living situation. - Plan: - Clinician to provide a letter to support the patient's appeal to break the lease. - Encourage the patient to continue working with their therapist to manage stress and anxiety related to the living situation. 8. Medication Refills: - Patient has two weeks before needing to refill medications. - Plan: - Instruct the patient to send a message if refills are needed. - Monitor for any changes in medication adherence. Follow-up: - Schedule a follow-up appointment in 4 weeks to assess the patient's progress and make any necessary adjustments to the treatment plan. - Encourage the patient to reach out sooner if any concerns or changes in symptoms arise. 06/06/2024 Attention-defici t hyperactivity disorder, predominantly inattentive type (ICD-10 - F90.0) jornay 100mg pm 1. Major Depressive Disorder: - Patient reports fewer depressive episodes since starting VNS therapy. - Plan: - Continue current medications: Auvelity 45 mg -105mg twice a day, Rexulti 1 mg daily. - Monitor for any changes in mood or suicidal thoughts. 2. Migraines: - Patient reports an increase in migraines, currently working with a neurologist to control them. - Plan: - Monitor the effectiveness of the new migraine medication (Emgality) prescribed by the neurologist. 3. VNS Therapy: - Patient reports improvement in depression symptoms since starting VNS. - VNS output increased from 1.25 to 1.5 during the visit. - Plan: - Continue to monitor VNS therapy progress and make adjustments as needed. 4. ADHD: - Plan: - Continue current medication: JournA 100 mg every evening. - Monitor for any changes in attention or focus. 5. Nightmares: - Plan: - Continue current medication: Prazosin 10 mg at bedtime. - Monitor for any changes in sleep quality or frequency of nightmares. 6. Insomnia: - Patient reports difficulty staying asleep with Trazodone 100 mg at bedtime. - Plan: - Continue current medication and monitor for any changes in sleep patterns. - Consider adjusting the dose or exploring alternative medications if sleep issues persist. 7. Living Situation and Mental Health: - Patient reports a significant negative impact on mental health due to the current living situation. - Plan: - Clinician to provide a letter to support the patient's appeal to break the lease. - Encourage the patient to continue working with their therapist to manage stress and anxiety related to the living situation. 8. Medication Refills: - Patient has two weeks before needing to refill medications. - Plan: - Instruct the patient to send a message if refills are needed. - Monitor for any changes in medication adherence. Follow-up: - Schedule a follow-up appointment in 4 weeks to assess the patient's progress and make any necessary adjustments to the treatment plan. - Encourage the patient to reach out sooner if any concerns or changes in symptoms arise. 06/18/2024 Attention-defici t hyperactivity disorder, predominantly inattentive type (ICD-10 - F90.0) 07/04/2024 Major depressive disorder, recurrent severe without psychotic features (ICD-10 - F33.2) auvelity 45mg -105mg bid, rexulti 1mg daily 1 1. Mood disorder: - Patient reports increased depressive episodes, irritability, and feeling overwhelmed. Plan: - No changes in medication are recommended at this time. - Encourage the patient to address external stressors, such as managing the kitten's behavior and delegating tasks when feeling overwhelmed. - VNS adjusted. 2. ADHD: - Patient reports difficulty with Jornay's effectiveness later in the day. The current dose is at the maximum. Plan: - Recommend adjusting the timing of Jornay administration to better align with the patient's schedule and needs. - Encourage the patient to discuss behavioral management strategies with their therapist. 3. Migraines: - Patient reports an uptick in migraines due to weather changes. Plan: - Continue current treatment with propranolol twice a day. - The patient is scheduled for an MRI at [place] to further evaluate the migraines. 4. Insomnia: - Patient reports difficulty sleeping due to the kitten's behavior. Plan: - Encourage the patient to manage the kitten's behavior by keeping her in a separate room when necessary. - Continue current treatment with trazodone at bedtime. 5. Pain at incision site: - Patient reports pain at the incision site. No specific cause identified. Plan: - Monitor the pain and encourage the patient to report any changes or worsening. 6. Medication refills: Plan: - Refill Jornay, Auvelity, Rexulti, and Trazodone as needed. - Ensure the patient continues to use a monthly medication demand planner to improve adherence. Follow-up in one month 08/01/2024 Major depressive disorder, recurrent severe without psychotic features (ICD-10 - F33.2) auvelity 45mg -105mg bid, rexulti 1mg daily Plasma concentrations and pharmacologic effects of brexpiprazole may be increased by strong CYP2D6 inhibitors (eg, Auvelity Oral Tablet Extended Release 45-105 MG). A brexpiprazole dosage reduction is recommended in patients receiving brexpiprazole for the treatment of schizophrenia while receiving concomitant strong CYP2D6 inhibitors. (A brexpiprazole dosage adjustment is not recommended in patients receiving brexpiprazole for the treatment of depression.) The recommended brexpiprazole dosage may be influenced by concomitant therapy with CY inhibitors. 1. Major Depressive Disorder: - Patient reports increased depression symptoms due to less sunlight and seasonal changes. - Continue current medications: Auvelity twice a day, Rexulti 1 mg, trazodone 100 mg for insomnia. Plan: - Encourage patient to continue weekly therapy sessions. 2. Generalized Anxiety Disorder: - Patient reports increased anxiety, physical symptoms, and therapist's observation of heightened anxiety. Plan: - Add buspirone 7.5 mg twice a day (morning and night) to help manage anxiety symptoms. - Continue working with therapist on trauma issues. 3. Attention Deficit Hyperactivity Disorder (ADHD): - Patient reports improvement in ADHD symptoms with Jornay taken later at night. Plan: - Continue Jornay for ADHD management. 4. Insomnia: - Patient reports sleeping but still feeling exhausted. Plan: - Continue trazodone 100 mg for insomnia management. 5. Nightmares: Plan: - Continue prazosin 10 mg at bedtime for nightmare management. 6. Vagus Nerve Stimulation (VNS) therapy: - Patient reports no problems or pain with VNS and overall improvement. Plan: - Increase VNS setting to 2. - Monitor patient's response to the increased setting. Follow-up: - Schedule a follow-up appointment in one month to assess patient's response to the added buspirone and increased VNS setting. 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 A brexpiprazole dosage reduction is recommended in patients receiving brexpiprazole for the treatment of schizophrenia while receiving concomitant strong CYP2D6 inhibitors. (A brexpiprazole dosage adjustment is not recommended in patients receiving brexpiprazole for the treatment of depression.) The recommended brexpiprazole dosage may be influenced by concomitant therapy with CY inhibitors. 1. Depression: - Patient reports worsening depression symptoms, difficulty getting out of bed, and decreased interest in activities. Plan: - Encourage patient to establish a routine for medication adherence. - Monitor patient's progress and consider adjusting Rexulti dosage if symptoms do not improve. - Continue Rexulti 1 mg once a day. 2. ADHD: - Patient is currently on Jornay 100 mg for ADHD management. Plan: - Continue Jornay 100 mg and monitor for effectiveness and side effects. 3. PTSD-related nightmares: - Patient reports an increase in nightmares and sleep disturbances. Plan: - Continue prazosin 10 mg at bedtime. - Monitor for improvement in sleep quality and reduction in nightmares. 4. Insomnia: - Patient reports unrefreshing sleep and sleep disturbances. Plan: - Continue trazodone 100 mg at bedtime. - Monitor for improvement in sleep quality. 5. Anxiety: - Patient is currently on buspirone 7.5 mg twice a day for anxiety management. Plan: - Continue buspirone 7.5 mg twice a day. - Monitor for effectiveness and side effects. 6. VNS therapy: - Patient reports voice changes during VNS therapy but is adjusting to the side effect. Plan: - Increase VNS output to 2.25. - Monitor for improvement in symptoms and side effects. - Consider further adjustments if needed. 7. Pharmacy change: - Patient requested to change the pharmacy to [facility] in [place]. Plan: - Update pharmacy information in the system. - Send all prescriptions to the new pharmacy. 8. Address update: - Patient provided a new address: [address] [place] [address] or [place]. Plan: - Update patient's address in the system for accurate record-keeping. 10/08/2024 Major depressive disorder, recurrent severe without psychotic features (ICD-10 - F33.2) auvelity 45mg -105mg bid, rexulti 1mg daily Plasma concentrations and pharmacologic effects of brexpiprazole may be increased by strong CYP2D6 inhibitors (eg, Auvelity Oral Tablet Extended Release 45-105 MG). A brexpiprazole dosage reduction is recommended in patients receiving brexpiprazole for the treatment of schizophrenia while receiving concomitant strong CYP2D6 inhibitors. (A brexpiprazole dosage adjustment is not recommended in patients receiving brexpiprazole for the treatment of depression.) The recommended brexpiprazole dosage may be influenced by concomitant therapy with CY inhibitors. 1. Medication non-adherence: - Patient reports inconsistent medication intake since mike COVID, mainly missing morning doses. Plan: - Encourage the patient to set alarms for medication reminders and utilize a medication demand planner with morning and night sections to improve adherence. - Follow up in one month to assess improvement in medication adherence. 2. Depression: - Patient reports fluctuating motivation and occasional suicidal thoughts without a plan or intention. - Currently on Rexulti 1 mg daily, Auvelity twice a day, Jornay 100 mg daily. Plan: - Continue current medications and monitor for improvement in depressive symptoms. - Encourage better medication adherence as mentioned above. 3. Anxiety: - Patient is currently on buspirone 7.5 mg twice a day and propranolol 20 mg twice a day for anxiety management. Plan: - Continue current medications and monitor for improvement in anxiety symptoms. - Encourage better medication adherence as mentioned above. - Refill buspirone prescription. 4. Insomnia: - Patient is currently on Trazodone for insomnia management. Plan: - Continue current medication and monitor for improvement in sleep quality. - Encourage better medication adherence as mentioned above. 5. Nightmares: - Patient is currently on Prazosin for nightmare management. Plan: - Continue current medication and monitor for improvement in nightmare frequency and intensity. - Encourage better medication adherence as mentioned above. 6. Vagus Nerve Stimulation (VNS): - Patient reports voice hoarseness and increased breathlessness in cold weather but overall good tolerance of the VNS. Plan: - Increase VNS output to 2.5 (from 2.25) and monitor for any changes in side effects or therapeutic response. - Follow up in one month to assess VNS response and overall mental health status. 7. Medication refills: - Patient has enough Auvelity and recently refilled Rexulti and propranolol prescriptions. Plan: - Refill Jornay and buspirone prescriptions. - Monitor medication supply and refill as needed during follow-up appointments. 11/07/2023 Major depressive disorder, recurrent severe without psychotic features (ICD-10 - F33.2) 11/07/2023 Generalized anxiety disorder (ICD-10 - F41.1) 11/07/2023 Post-traumatic stress disorder, unspecified (ICD-10 - F43.10) 11/07/2023 Post-traumatic stress disorder, chronic (ICD-10 - F43.12) 11/07/2023 Insomnia due to other mental disorder (ICD-10 - F51.05) 11/07/2023 Attention-defici t hyperactivity disorder, predominantly inattentive type (ICD-10 - F90.0) 11/13/2023 Post-traumatic stress disorder, unspecified (ICD-10 - F43.10) 12/05/2023 Major depressive disorder, recurrent severe without psychotic features (ICD-10 - F33.2) 12/05/2023 Generalized anxiety disorder (ICD-10 - F41.1) 12/05/2023 Post-traumatic stress disorder, unspecified (ICD-10 - F43.10) 12/05/2023 Post-traumatic stress disorder, chronic (ICD-10 - F43.12) 12/05/2023 Insomnia due to other mental disorder (ICD-10 - F51.05) 12/05/2023 Attention-defici t hyperactivity disorder, predominantly inattentive type (ICD-10 - F90.0) 12/26/2023 Major depressive disorder, recurrent severe without psychotic features (ICD-10 - F33.2) 12/26/2023 Generalized anxiety disorder (ICD-10 - F41.1) 12/26/2023 Post-traumatic stress disorder, unspecified (ICD-10 - F43.10) 12/26/2023 Post-traumatic stress disorder, chronic (ICD-10 - F43.12) 12/26/2023 Insomnia due to other mental disorder (ICD-10 - F51.05) 12/26/2023 Attention-defici t hyperactivity disorder, predominantly inattentive type (ICD-10 - F90.0) 01/14/2024 Generalized anxiety disorder (ICD-10 - F41.1) 01/14/2024 Post-traumatic stress disorder, unspecified (ICD-10 - F43.10) 01/25/2024 Major depressive disorder, recurrent severe without psychotic features (ICD-10 - F33.2) 01/25/2024 Generalized anxiety disorder (ICD-10 - F41.1) 01/25/2024 Post-traumatic stress disorder, unspecified (ICD-10 - F43.10) 01/25/2024 Post-traumatic stress disorder, chronic (ICD-10 - F43.12) 01/25/2024 Insomnia due to other mental disorder (ICD-10 - F51.05) 01/25/2024 Attention-defici t hyperactivity disorder, predominantly inattentive type (ICD-10 - F90.0) 02/11/2024 Attention-defici t hyperactivity disorder, predominantly inattentive type (ICD-10 - F90.0) 08/27/2024 Attention-defici t hyperactivity disorder, predominantly inattentive type (ICD-10 - F90.0) jornay 100mg pm 1. Depression: - Patient reports worsening depression symptoms, difficulty getting out of bed, and decreased interest in activities. Plan: - Encourage patient to establish a routine for medication adherence. - Monitor patient's progress and consider adjusting Rexulti dosage if symptoms do not improve. - Continue Rexulti 1 mg once a day. 2. ADHD: - Patient is currently on Jornay 100 mg for ADHD management. Plan: - Continue Jornay 100 mg and monitor for effectiveness and side effects. 3. PTSD-related nightmares: - Patient reports an increase in nightmares and sleep disturbances. Plan: - Continue prazosin 10 mg at bedtime. - Monitor for improvement in sleep quality and reduction in nightmares. 4. Insomnia: - Patient reports unrefreshing sleep and sleep disturbances. Plan: - Continue trazodone 100 mg at bedtime. - Monitor for improvement in sleep quality. 5. Anxiety: - Patient is currently on buspirone 7.5 mg twice a day for anxiety management. Plan: - Continue buspirone 7.5 mg twice a day. - Monitor for effectiveness and side effects. 6. VNS therapy: - Patient reports voice changes during VNS therapy but is adjusting to the side effect. Plan: - Increase VNS output to 2.25. - Monitor for improvement in symptoms and side effects. - Consider further adjustments if needed. 7. Pharmacy change: - Patient requested to change the pharmacy to [facility] in . Plan: - Update pharmacy information in the system. - Send all prescriptions to the new pharmacy. 8. Address update: - Patient provided a new address: [address] [place] [address] or [place]. Plan: - Update patient's address in the system for accurate record-keeping. 10/08/2024 Attention-defici t hyperactivity disorder, predominantly inattentive type (ICD-10 - F90.0) jornay 100mg pm 1. Medication non-adherence: - Patient reports inconsistent medication intake since mike COVID, mainly missing morning doses. Plan: - Encourage the patient to set alarms for medication reminders and utilize a medication demand planner with morning and night sections to improve adherence. - Follow up in one month to assess improvement in medication adherence. 2. Depression: - Patient reports fluctuating motivation and occasional suicidal thoughts without a plan or intention. - Currently on Rexulti 1 mg daily, Auvelity twice a day, Jornay 100 mg daily. Plan: - Continue current medications and monitor for improvement in depressive symptoms. - Encourage better medication adherence as mentioned above. 3. Anxiety: - Patient is currently on buspirone 7.5 mg twice a day and propranolol 20 mg twice a day for anxiety management. Plan: - Continue current medications and monitor for improvement in anxiety symptoms. - Encourage better medication adherence as mentioned above. - Refill buspirone prescription. 4. Insomnia: - Patient is currently on Trazodone for insomnia management. Plan: - Continue current medication and monitor for improvement in sleep quality. - Encourage better medication adherence as mentioned above. 5. Nightmares: - Patient is currently on Prazosin for nightmare management. Plan: - Continue current medication and monitor for improvement in nightmare frequency and intensity. - Encourage better medication adherence as mentioned above. 6. Vagus Nerve Stimulation (VNS): - Patient reports voice hoarseness and increased breathlessness in cold weather but overall good tolerance of the VNS. Plan: - Increase VNS output to 2.5 (from 2.25) and monitor for any changes in side effects or therapeutic response. - Follow up in one month to assess VNS response and overall mental health status. 7. Medication refills: - Patient has enough Auvelity and recently refilled Rexulti and propranolol prescriptions. Plan: - Refill Jornay and buspirone prescriptions. - Monitor medication supply and refill as needed during follow-up appointments. 08/01/2024 Attention-defici t hyperactivity disorder, predominantly inattentive type (ICD-10 - F90.0) jornay 100mg pm 1. Major Depressive Disorder: - Patient reports increased depression symptoms due to less sunlight and seasonal changes. - Continue current medications: Auvelity twice a day, Rexulti 1 mg, trazodone 100 mg for insomnia. Plan: - Encourage patient to continue weekly therapy sessions. 2. Generalized Anxiety Disorder: - Patient reports increased anxiety, physical symptoms, and therapist's observation of heightened anxiety. Plan: - Add buspirone 7.5 mg twice a day (morning and night) to help manage anxiety symptoms. - Continue working with therapist on trauma issues. 3. Attention Deficit Hyperactivity Disorder (ADHD): - Patient reports improvement in ADHD symptoms with Jornay taken later at night. Plan: - Continue Jornay for ADHD management. 4. Insomnia: - Patient reports sleeping but still feeling exhausted. Plan: - Continue trazodone 100 mg for insomnia management. 5. Nightmares: Plan: - Continue prazosin 10 mg at bedtime for nightmare management. 6. Vagus Nerve Stimulation (VNS) therapy: - Patient reports no problems or pain with VNS and overall improvement. Plan: - Increase VNS setting to 2. - Monitor patient's response to the increased setting. Follow-up: - Schedule a follow-up appointment in one month to assess patient's response to the added buspirone and increased VNS setting. 06/18/2024 Major depressive disorder, recurrent severe without psychotic features (ICD-10 - F33.2) 07/04/2024 Major depressive disorder, recurrent severe without psychotic features (ICD-10 - F33.2) Electronic Prior Authorization was requested for Rexulti 1 MG Tablet. Provider can order medication once approval received. 07/04/2024 Attention-defici t hyperactivity disorder, predominantly inattentive type (ICD-10 - F90.0) jornay 100mg pm 1 1. Mood disorder: - Patient reports increased depressive episodes, irritability, and feeling overwhelmed. Plan: - No changes in medication are recommended at this time. - Encourage the patient to address external stressors, such as managing the kitten's behavior and delegating tasks when feeling overwhelmed. - VNS adjusted. 2. ADHD: - Patient reports difficulty with Jornay's effectiveness later in the day. The current dose is at the maximum. Plan: - Recommend adjusting the timing of Jornay administration to better align with the patient's schedule and needs. - Encourage the patient to discuss behavioral management strategies with their therapist. 3. Migraines: - Patient reports an uptick in migraines due to weather changes. Plan: - Continue current treatment with propranolol twice a day. - The patient is scheduled for an MRI at [place] to further evaluate the migraines. 4. Insomnia: - Patient reports difficulty sleeping due to the kitten's behavior. Plan: - Encourage the patient to manage the kitten's behavior by keeping her in a separate room when necessary. - Continue current treatment with trazodone at bedtime. 5. Pain at incision site: - Patient reports pain at the incision site. No specific cause identified. Plan: - Monitor the pain and encourage the patient to report any changes or worsening. 6. Medication refills: Plan: - Refill Jornay, Auvelity, Rexulti, and Trazodone as needed. - Ensure the patient continues to use a monthly medication demand planner to improve adherence. Follow-up in one month 06/06/2024 Post-traumatic stress disorder, unspecified (ICD-10 - F43.10) prazosin 5mg 2 capsules at hs 1. Major Depressive Disorder: - Patient reports fewer depressive episodes since starting VNS therapy. - Plan: - Continue current medications: Auvelity 45 mg -105mg twice a day, Rexulti 1 mg daily. - Monitor for any changes in mood or suicidal thoughts. 2. Migraines: - Patient reports an increase in migraines, currently working with a neurologist to control them. - Plan: - Monitor the effectiveness of the new migraine medication (Emgality) prescribed by the neurologist. 3. VNS Therapy: - Patient reports improvement in depression symptoms since starting VNS. - VNS output increased from 1.25 to 1.5 during the visit. - Plan: - Continue to monitor VNS therapy progress and make adjustments as needed. 4. ADHD: - Plan: - Continue current medication: JournA 100 mg every evening. - Monitor for any changes in attention or focus. 5. Nightmares: - Plan: - Continue current medication: Prazosin 10 mg at bedtime. - Monitor for any changes in sleep quality or frequency of nightmares. 6. Insomnia: - Patient reports difficulty staying asleep with Trazodone 100 mg at bedtime. - Plan: - Continue current medication and monitor for any changes in sleep patterns. - Consider adjusting the dose or exploring alternative medications if sleep issues persist. 7. Living Situation and Mental Health: - Patient reports a significant negative impact on mental health due to the current living situation. - Plan: - Clinician to provide a letter to support the patient's appeal to break the lease. - Encourage the patient to continue working with their therapist to manage stress and anxiety related to the living situation. 8. Medication Refills: - Patient has two weeks before needing to refill medications. - Plan: - Instruct the patient to send a message if refills are needed. - Monitor for any changes in medication adherence. Follow-up: - Schedule a follow-up appointment in 4 weeks to assess the patient's progress and make any necessary adjustments to the treatment plan. - Encourage the patient to reach out sooner if any concerns or changes in symptoms arise. 04/11/2024 Attention-defici t hyperactivity disorder, predominantly inattentive type (ICD-10 - F90.0) VNS Interrogated and adjusted VNS Therapy- implanted 11/14/23 DEVICE- Symmetry M8103 SERIAL NUMBER- [id number] Normal Mode Output current-1.0mA Frequency- 20Hz Pulse width-250uSec On time-30sec Off time-5 min Duty Cycle-10 Magnet mode Output Current- 0.5mA Pulse Width- 250uSec On time-30 sec VNS Interrogated and adjusted 05/09/2024 Attention-defici t hyperactivity disorder, predominantly inattentive type (ICD-10 - F90.0) jornay 100mg pm VNS Interrogated and adjusted VNS Therapy- implanted 11/14/23 DEVICE- Symmetry M8103 SERIAL NUMBER- [id number] Normal Mode Output current-1.25mA Frequency- 20Hz Pulse width-250uSec On time-30sec Off time-5 min Duty Cycle-10 Magnet mode Output Current- 0.5mA Pulse Width- 250uSec On time-30 sec 1. Major Depressive Disorder, severe: - Continue Auvelity 45 mg, 105 mg twice a day - Continue Rexulti 1 mg daily - Continue VNS therapy Plan: - Monitor response to medications and VNS therapy - Follow up in one month 2. ADHD, primarily inattentive type: - Continue Journey 100 mg at bedtime Plan: - Monitor response to medication - Follow up in one month 3. PTSD nightmares: - Continue Prazosin 5 mg (two at bedtime) Plan: - Monitor response to medication - Follow up in one month 4. Insomnia: - Continue Trazodone 100 mg at bedtime Plan: - Monitor sleep patterns and response to medication - Follow up in one month 5. Migraines: Plan: - Patient to contact PCP for referral to a specialist - Monitor frequency and severity of migraines - Follow up in one month 6. VNS-related pain: Plan: - Schedule follow-up with surgeon - Monitor pain and discomfort related to VNS - Follow up in one month 7. Medication adherence: Plan: - Encourage consistent use of the month-long pill demand planner - Monitor medication adherence and effectiveness - Follow up in one month 8. Counseling: Plan: - Continue therapy - Plan trauma treatment once the patient reaches a better baseline - Follow up in one month 03/14/2024 Post-traumatic stress disorder, unspecified (ICD-10 - F43.10) VNS Interrogated and adjusted VNS Therapy- implanted 11/14/23 DEVICE- Symmetry M8103 SERIAL NUMBER- [id number] Normal Mode Output current-0.75mA Frequency- 20Hz Pulse width-250uSec On time-30sec Off time-5 min Duty Cycle-10 Magnet mode Output Current- 0.5mA Pulse Width- 250uSec On time-30 sec tolerating VNS well 03/14/2024 Insomnia due to other mental disorder (ICD-10 - F51.05) VNS Interrogated and adjusted VNS Therapy- implanted 11/14/23 DEVICE- Symmetry M8103 SERIAL NUMBER- [id number] Normal Mode Output current-0.75mA Frequency- 20Hz Pulse width-250uSec On time-30sec Off time-5 min Duty Cycle-10 Magnet mode Output Current- 0.5mA Pulse Width- 250uSec On time-30 sec tolerating VNS well 04/11/2024 Post-traumatic stress disorder, unspecified (ICD-10 - F43.10) VNS Interrogated and adjusted VNS Therapy- implanted 11/14/23 DEVICE- Symmetry M8103 SERIAL NUMBER- [id number] Normal Mode Output current-1.0mA Frequency- 20Hz Pulse width-250uSec On time-30sec Off time-5 min Duty Cycle-10 Magnet mode Output Current- 0.5mA Pulse Width- 250uSec On time-30 sec VNS Interrogated and adjusted 05/09/2024 Post-traumatic stress disorder, unspecified (ICD-10 - F43.10) prazosin 5mg 2 capsules at hs VNS Interrogated and adjusted VNS Therapy- implanted 11/14/23 DEVICE- Symmetry M8103 SERIAL NUMBER- [id number] Normal Mode Output current-1.25mA Frequency- 20Hz Pulse width-250uSec On time-30sec Off time-5 min Duty Cycle-10 Magnet mode Output Current- 0.5mA Pulse Width- 250uSec On time-30 sec 1. Major Depressive Disorder, severe: - Continue Auvelity 45 mg, 105 mg twice a day - Continue Rexulti 1 mg daily - Continue VNS therapy Plan: - Monitor response to medications and VNS therapy - Follow up in one month 2. ADHD, primarily inattentive type: - Continue Journey 100 mg at bedtime Plan: - Monitor response to medication - Follow up in one month 3. PTSD nightmares: - Continue Prazosin 5 mg (two at bedtime) Plan: - Monitor response to medication - Follow up in one month 4. Insomnia: - Continue Trazodone 100 mg at bedtime Plan: - Monitor sleep patterns and response to medication - Follow up in one month 5. Migraines: Plan: - Patient to contact PCP for referral to a specialist - Monitor frequency and severity of migraines - Follow up in one month 6. VNS-related pain: Plan: - Schedule follow-up with surgeon - Monitor pain and discomfort related to VNS - Follow up in one month 7. Medication adherence: Plan: - Encourage consistent use of the month-long pill demand planner - Monitor medication adherence and effectiveness - Follow up in one month 8. Counseling: Plan: - Continue therapy - Plan trauma treatment once the patient reaches a better baseline - Follow up in one month 06/06/2024 Insomnia due to other mental disorder (ICD-10 - F51.05) trazodone 100mg hs 1. Major Depressive Disorder: - Patient reports fewer depressive episodes since starting VNS therapy. - Plan: - Continue current medications: Auvelity 45 mg -105mg twice a day, Rexulti 1 mg daily. - Monitor for any changes in mood or suicidal thoughts. 2. Migraines: - Patient reports an increase in migraines, currently working with a neurologist to control them. - Plan: - Monitor the effectiveness of the new migraine medication (Emgality) prescribed by the neurologist. 3. VNS Therapy: - Patient reports improvement in depression symptoms since starting VNS. - VNS output increased from 1.25 to 1.5 during the visit. - Plan: - Continue to monitor VNS therapy progress and make adjustments as needed. 4. ADHD: - Plan: - Continue current medication: JournA 100 mg every evening. - Monitor for any changes in attention or focus. 5. Nightmares: - Plan: - Continue current medication: Prazosin 10 mg at bedtime. - Monitor for any changes in sleep quality or frequency of nightmares. 6. Insomnia: - Patient reports difficulty staying asleep with Trazodone 100 mg at bedtime. - Plan: - Continue current medication and monitor for any changes in sleep patterns. - Consider adjusting the dose or exploring alternative medications if sleep issues persist. 7. Living Situation and Mental Health: - Patient reports a significant negative impact on mental health due to the current living situation. - Plan: - Clinician to provide a letter to support the patient's appeal to break the lease. - Encourage the patient to continue working with their therapist to manage stress and anxiety related to the living situation. 8. Medication Refills: - Patient has two weeks before needing to refill medications. - Plan: - Instruct the patient to send a message if refills are needed. - Monitor for any changes in medication adherence. Follow-up: - Schedule a follow-up appointment in 4 weeks to assess the patient's progress and make any necessary adjustments to the treatment plan. - Encourage the patient to reach out sooner if any concerns or changes in symptoms arise. 07/04/2024 Post-traumatic stress disorder, unspecified (ICD-10 - F43.10) prazosin 5mg 2 capsules at hs 1 1. Mood disorder: - Patient reports increased depressive episodes, irritability, and feeling overwhelmed. Plan: - No changes in medication are recommended at this time. - Encourage the patient to address external stressors, such as managing the kitten's behavior and delegating tasks when feeling overwhelmed. - VNS adjusted. 2. ADHD: - Patient reports difficulty with Jornay's effectiveness later in the day. The current dose is at the maximum. Plan: - Recommend adjusting the timing of Jornay administration to better align with the patient's schedule and needs. - Encourage the patient to discuss behavioral management strategies with their therapist. 3. Migraines: - Patient reports an uptick in migraines due to weather changes. Plan: - Continue current treatment with propranolol twice a day. - The patient is scheduled for an MRI at [place] to further evaluate the migraines. 4. Insomnia: - Patient reports difficulty sleeping due to the kitten's behavior. Plan: - Encourage the patient to manage the kitten's behavior by keeping her in a separate room when necessary. - Continue current treatment with trazodone at bedtime. 5. Pain at incision site: - Patient reports pain at the incision site. No specific cause identified. Plan: - Monitor the pain and encourage the patient to report any changes or worsening. 6. Medication refills: Plan: - Refill Jornay, Auvelity, Rexulti, and Trazodone as needed. - Ensure the patient continues to use a monthly medication demand planner to improve adherence. Follow-up in one month 08/01/2024 Post-traumatic stress disorder, unspecified (ICD-10 - F43.10) prazosin 5mg 2 capsules at hs 1. Major Depressive Disorder: - Patient reports increased depression symptoms due to less sunlight and seasonal changes. - Continue current medications: Auvelity twice a day, Rexulti 1 mg, trazodone 100 mg for insomnia. Plan: - Encourage patient to continue weekly therapy sessions. 2. Generalized Anxiety Disorder: - Patient reports increased anxiety, physical symptoms, and therapist's observation of heightened anxiety. Plan: - Add buspirone 7.5 mg twice a day (morning and night) to help manage anxiety symptoms. - Continue working with therapist on trauma issues. 3. Attention Deficit Hyperactivity Disorder (ADHD): - Patient reports improvement in ADHD symptoms with Jornay taken later at night. Plan: - Continue Jornay for ADHD management. 4. Insomnia: - Patient reports sleeping but still feeling exhausted. Plan: - Continue trazodone 100 mg for insomnia management. 5. Nightmares: Plan: - Continue prazosin 10 mg at bedtime for nightmare management. 6. Vagus Nerve Stimulation (VNS) therapy: - Patient reports no problems or pain with VNS and overall improvement. Plan: - Increase VNS setting to 2. - Monitor patient's response to the increased setting. Follow-up: - Schedule a follow-up appointment in one month to assess patient's response to the added buspirone and increased VNS setting. 08/27/2024 Post-traumatic stress disorder, unspecified (ICD-10 - F43.10) prazosin 5mg 2 capsules at hs 1. Depression: - Patient reports worsening depression symptoms, difficulty getting out of bed, and decreased interest in activities. Plan: - Encourage patient to establish a routine for medication adherence. - Monitor patient's progress and consider adjusting Rexulti dosage if symptoms do not improve. - Continue Rexulti 1 mg once a day. 2. ADHD: - Patient is currently on Jornay 100 mg for ADHD management. Plan: - Continue Jornay 100 mg and monitor for effectiveness and side effects. 3. PTSD-related nightmares: - Patient reports an increase in nightmares and sleep disturbances. Plan: - Continue prazosin 10 mg at bedtime. - Monitor for improvement in sleep quality and reduction in nightmares. 4. Insomnia: - Patient reports unrefreshing sleep and sleep disturbances. Plan: - Continue trazodone 100 mg at bedtime. - Monitor for improvement in sleep quality. 5. Anxiety: - Patient is currently on buspirone 7.5 mg twice a day for anxiety management. Plan: - Continue buspirone 7.5 mg twice a day. - Monitor for effectiveness and side effects. 6. VNS therapy: - Patient reports voice changes during VNS therapy but is adjusting to the side effect. Plan: - Increase VNS output to 2.25. - Monitor for improvement in symptoms and side effects. - Consider further adjustments if needed. 7. Pharmacy change: - Patient requested to change the pharmacy to [facility] in [place]. Plan: - Update pharmacy information in the system. - Send all prescriptions to the new pharmacy. 8. Address update: - Patient provided a new address: [address] [place] [address] or [place]. Plan: - Update patient's address in the system for accurate record-keeping. 10/08/2024 Post-traumatic stress disorder, unspecified (ICD-10 - F43.10) prazosin 5mg 2 capsules at hs 1. Medication non-adherence: - Patient reports inconsistent medication intake since mike COVID, mainly missing morning doses. Plan: - Encourage the patient to set alarms for medication reminders and utilize a medication demand planner with morning and night sections to improve adherence. - Follow up in one month to assess improvement in medication adherence. 2. Depression: - Patient reports fluctuating motivation and occasional suicidal thoughts without a plan or intention. - Currently on Rexulti 1 mg daily, Auvelity twice a day, Jornay 100 mg daily. Plan: - Continue current medications and monitor for improvement in depressive symptoms. - Encourage better medication adherence as mentioned above. 3. Anxiety: - Patient is currently on buspirone 7.5 mg twice a day and propranolol 20 mg twice a day for anxiety management. Plan: - Continue current medications and monitor for improvement in anxiety symptoms. - Encourage better medication adherence as mentioned above. - Refill buspirone prescription. 4. Insomnia: - Patient is currently on Trazodone for insomnia management. Plan: - Continue current medication and monitor for improvement in sleep quality. - Encourage better medication adherence as mentioned above. 5. Nightmares: - Patient is currently on Prazosin for nightmare management. Plan: - Continue current medication and monitor for improvement in nightmare frequency and intensity. - Encourage better medication adherence as mentioned above. 6. Vagus Nerve Stimulation (VNS): - Patient reports voice hoarseness and increased breathlessness in cold weather but overall good tolerance of the VNS. Plan: - Increase VNS output to 2.5 (from 2.25) and monitor for any changes in side effects or therapeutic response. - Follow up in one month to assess VNS response and overall mental health status. 7. Medication refills: - Patient has enough Auvelity and recently refilled Rexulti and propranolol prescriptions. Plan: - Refill Jornay and buspirone prescriptions. - Monitor medication supply and refill as needed during follow-up appointments. 10/08/2024 Insomnia due to other mental disorder (ICD-10 - F51.05) trazodone 100mg hs 1. Medication non-adherence: - Patient reports inconsistent medication intake since mike COVID, mainly missing morning doses. Plan: - Encourage the patient to set alarms for medication reminders and utilize a medication demand planner with morning and night sections to improve adherence. - Follow up in one month to assess improvement in medication adherence. 2. Depression: - Patient reports fluctuating motivation and occasional suicidal thoughts without a plan or intention. - Currently on Rexulti 1 mg daily, Auvelity twice a day, Jornay 100 mg daily. Plan: - Continue current medications and monitor for improvement in depressive symptoms. - Encourage better medication adherence as mentioned above. 3. Anxiety: - Patient is currently on buspirone 7.5 mg twice a day and propranolol 20 mg twice a day for anxiety management. Plan: - Continue current medications and monitor for improvement in anxiety symptoms. - Encourage better medication adherence as mentioned above. - Refill buspirone prescription. 4. Insomnia: - Patient is currently on Trazodone for insomnia management. Plan: - Continue current medication and monitor for improvement in sleep quality. - Encourage better medication adherence as mentioned above. 5. Nightmares: - Patient is currently on Prazosin for nightmare management. Plan: - Continue current medication and monitor for improvement in nightmare frequency and intensity. - Encourage better medication adherence as mentioned above. 6. Vagus Nerve Stimulation (VNS): - Patient reports voice hoarseness and increased breathlessness in cold weather but overall good tolerance of the VNS. Plan: - Increase VNS output to 2.5 (from 2.25) and monitor for any changes in side effects or therapeutic response. - Follow up in one month to assess VNS response and overall mental health status. 7. Medication refills: - Patient has enough Auvelity and recently refilled Rexulti and propranolol prescriptions. Plan: - Refill Jornay and buspirone prescriptions. - Monitor medication supply and refill as needed during follow-up appointments. 08/27/2024 Insomnia due to other mental disorder (ICD-10 - F51.05) trazodone 100mg hs 1. Depression: - Patient reports worsening depression symptoms, difficulty getting out of bed, and decreased interest in activities. Plan: - Encourage patient to establish a routine for medication adherence. - Monitor patient's progress and consider adjusting Rexulti dosage if symptoms do not improve. - Continue Rexulti 1 mg once a day. 2. ADHD: - Patient is currently on Jornay 100 mg for ADHD management. Plan: - Continue Jornay 100 mg and monitor for effectiveness and side effects. 3. PTSD-related nightmares: - Patient reports an increase in nightmares and sleep disturbances. Plan: - Continue prazosin 10 mg at bedtime. - Monitor for improvement in sleep quality and reduction in nightmares. 4. Insomnia: - Patient reports unrefreshing sleep and sleep disturbances. Plan: - Continue trazodone 100 mg at bedtime. - Monitor for improvement in sleep quality. 5. Anxiety: - Patient is currently on buspirone 7.5 mg twice a day for anxiety management. Plan: - Continue buspirone 7.5 mg twice a day. - Monitor for effectiveness and side effects. 6. VNS therapy: - Patient reports voice changes during VNS therapy but is adjusting to the side effect. Plan: - Increase VNS output to 2.25. - Monitor for improvement in symptoms and side effects. - Consider further adjustments if needed. 7. Pharmacy change: - Patient requested to change the pharmacy to [facility] in . Plan: - Update pharmacy information in the system. - Send all prescriptions to the new pharmacy. 8. Address update: - Patient provided a new address: [address] [place] [address] or [place]. Plan: - Update patient's address in the system for accurate record-keeping. 08/01/2024 Insomnia due to other mental disorder (ICD-10 - F51.05) trazodone 100mg hs 1. Major Depressive Disorder: - Patient reports increased depression symptoms due to less sunlight and seasonal changes. - Continue current medications: Auvelity twice a day, Rexulti 1 mg, trazodone 100 mg for insomnia. Plan: - Encourage patient to continue weekly therapy sessions. 2. Generalized Anxiety Disorder: - Patient reports increased anxiety, physical symptoms, and therapist's observation of heightened anxiety. Plan: - Add buspirone 7.5 mg twice a day (morning and night) to help manage anxiety symptoms. - Continue working with therapist on trauma issues. 3. Attention Deficit Hyperactivity Disorder (ADHD): - Patient reports improvement in ADHD symptoms with Jornay taken later at night. Plan: - Continue Jornay for ADHD management. 4. Insomnia: - Patient reports sleeping but still feeling exhausted. Plan: - Continue trazodone 100 mg for insomnia management. 5. Nightmares: Plan: - Continue prazosin 10 mg at bedtime for nightmare management. 6. Vagus Nerve Stimulation (VNS) therapy: - Patient reports no problems or pain with VNS and overall improvement. Plan: - Increase VNS setting to 2. - Monitor patient's response to the increased setting. Follow-up: - Schedule a follow-up appointment in one month to assess patient's response to the added buspirone and increased VNS setting. 07/04/2024 Insomnia due to other mental disorder (ICD-10 - F51.05) trazodone 100mg hs 1 1. Mood disorder: - Patient reports increased depressive episodes, irritability, and feeling overwhelmed. Plan: - No changes in medication are recommended at this time. - Encourage the patient to address external stressors, such as managing the kitten's behavior and delegating tasks when feeling overwhelmed. - VNS adjusted. 2. ADHD: - Patient reports difficulty with Jornay's effectiveness later in the day. The current dose is at the maximum. Plan: - Recommend adjusting the timing of Jornay administration to better align with the patient's schedule and needs. - Encourage the patient to discuss behavioral management strategies with their therapist. 3. Migraines: - Patient reports an uptick in migraines due to weather changes. Plan: - Continue current treatment with propranolol twice a day. - The patient is scheduled for an MRI at [place] to further evaluate the migraines. 4. Insomnia: - Patient reports difficulty sleeping due to the kitten's behavior. Plan: - Encourage the patient to manage the kitten's behavior by keeping her in a separate room when necessary. - Continue current treatment with trazodone at bedtime. 5. Pain at incision site: - Patient reports pain at the incision site. No specific cause identified. Plan: - Monitor the pain and encourage the patient to report any changes or worsening. 6. Medication refills: Plan: - Refill Jornay, Auvelity, Rexulti, and Trazodone as needed. - Ensure the patient continues to use a monthly medication demand planner to improve adherence. Follow-up in one month 06/06/2024 Generalized anxiety disorder (ICD-10 - F41.1) 1. Major Depressive Disorder: - Patient reports fewer depressive episodes since starting VNS therapy. - Plan: - Continue current medications: Auvelity 45 mg -105mg twice a day, Rexulti 1 mg daily. - Monitor for any changes in mood or suicidal thoughts. 2. Migraines: - Patient reports an increase in migraines, currently working with a neurologist to control them. - Plan: - Monitor the effectiveness of the new migraine medication (Emgality) prescribed by the neurologist. 3. VNS Therapy: - Patient reports improvement in depression symptoms since starting VNS. - VNS output increased from 1.25 to 1.5 during the visit. - Plan: - Continue to monitor VNS therapy progress and make adjustments as needed. 4. ADHD: - Plan: - Continue current medication: JournA 100 mg every evening. - Monitor for any changes in attention or focus. 5. Nightmares: - Plan: - Continue current medication: Prazosin 10 mg at bedtime. - Monitor for any changes in sleep quality or frequency of nightmares. 6. Insomnia: - Patient reports difficulty staying asleep with Trazodone 100 mg at bedtime. - Plan: - Continue current medication and monitor for any changes in sleep patterns. - Consider adjusting the dose or exploring alternative medications if sleep issues persist. 7. Living Situation and Mental Health: - Patient reports a significant negative impact on mental health due to the current living situation. - Plan: - Clinician to provide a letter to support the patient's appeal to break the lease. - Encourage the patient to continue working with their therapist to manage stress and anxiety related to the living situation. 8. Medication Refills: - Patient has two weeks before needing to refill medications. - Plan: - Instruct the patient to send a message if refills are needed. - Monitor for any changes in medication adherence. Follow-up: - Schedule a follow-up appointment in 4 weeks to assess the patient's progress and make any necessary adjustments to the treatment plan. - Encourage the patient to reach out sooner if any concerns or changes in symptoms arise. 05/09/2024 Insomnia due to other mental disorder (ICD-10 - F51.05) trazodone 100mg hs VNS Interrogated and adjusted VNS Therapy- implanted 11/14/23 DEVICE- [facility] [id number] SERIAL NUMBER- [id number] Normal Mode Output current-1.25mA Frequency- 20Hz Pulse width-250uSec On time-30sec Off time-5 min Duty Cycle-10 Magnet mode Output Current- 0.5mA Pulse Width- 250uSec On time-30 sec 1. Major Depressive Disorder, severe: - Continue Auvelity 45 mg, 105 mg twice a day - Continue Rexulti 1 mg daily - Continue VNS therapy Plan: - Monitor response to medications and VNS therapy - Follow up in one month 2. ADHD, primarily inattentive type: - Continue Journey 100 mg at bedtime Plan: - Monitor response to medication - Follow up in one month 3. PTSD nightmares: - Continue Prazosin 5 mg (two at bedtime) Plan: - Monitor response to medication - Follow up in one month 4. Insomnia: - Continue Trazodone 100 mg at bedtime Plan: - Monitor sleep patterns and response to medication - Follow up in one month 5. Migraines: Plan: - Patient to contact PCP for referral to a specialist - Monitor frequency and severity of migraines - Follow up in one month 6. VNS-related pain: Plan: - Schedule follow-up with surgeon - Monitor pain and discomfort related to VNS - Follow up in one month 7. Medication adherence: Plan: - Encourage consistent use of the month-long pill demand planner - Monitor medication adherence and effectiveness - Follow up in one month 8. Counseling: Plan: - Continue therapy - Plan trauma treatment once the patient reaches a better baseline - Follow up in one month 04/11/2024 Insomnia due to other mental disorder (ICD-10 - F51.05) VNS Interrogated and adjusted VNS Therapy- implanted 11/14/23 DEVICE- [employer] M8103 SERIAL NUMBER- [id number] Normal Mode Output current-1.0mA Frequency- 20Hz Pulse width-250uSec On time-30sec Off time-5 min Duty Cycle-10 Magnet mode Output Current- 0.5mA Pulse Width- 250uSec On time-30 sec VNS Interrogated and adjusted 03/14/2024 Generalized anxiety disorder (ICD-10 - F41.1) VNS Interrogated and adjusted VNS Therapy- implanted 11/14/23 DEVICE- [facility] M8103 SERIAL NUMBER- [id number] Normal Mode Output current-0.75mA Frequency- 20Hz Pulse width-250uSec On time-30sec Off time-5 min Duty Cycle-10 Magnet mode Output Current- 0.5mA Pulse Width- 250uSec On time-30 sec tolerating VNS well 03/14/2024 Other senior care (current) drug therapy (ICD-10 - Z79.899) VNS Interrogated and adjusted VNS Therapy- implanted 11/14/23 DEVICE- [facility] M8103 SERIAL NUMBER- [id number] Normal Mode Output current-0.75mA Frequency- 20Hz Pulse width-250uSec On time-30sec Off time-5 min Duty Cycle-10 Magnet mode Output Current- 0.5mA Pulse Width- 250uSec On time-30 sec tolerating VNS well 05/09/2024 Generalized anxiety disorder (ICD-10 - F41.1) VNS Interrogated and adjusted VNS Therapy- implanted 11/14/23 DEVICE- [facility] M8103 SERIAL NUMBER- [id number] Normal Mode Output current-1.25mA Frequency- 20Hz Pulse width-250uSec On time-30sec Off time-5 min Duty Cycle-10 Magnet mode Output Current- 0.5mA Pulse Width- 250uSec On time-30 sec 1. Major Depressive Disorder, severe: - Continue Auvelity 45 mg, 105 mg twice a day - Continue Rexulti 1 mg daily - Continue VNS therapy Plan: - Monitor response to medications and VNS therapy - Follow up in one month 2. ADHD, primarily inattentive type: - Continue Journey 100 mg at bedtime Plan: - Monitor response to medication - Follow up in one month 3. PTSD nightmares: - Continue Prazosin 5 mg (two at bedtime) Plan: - Monitor response to medication - Follow up in one month 4. Insomnia: - Continue Trazodone 100 mg at bedtime Plan: - Monitor sleep patterns and response to medication - Follow up in one month 5. Migraines: Plan: - Patient to contact PCP for referral to a specialist - Monitor frequency and severity of migraines - Follow up in one month 6. VNS-related pain: Plan: - Schedule follow-up with surgeon - Monitor pain and discomfort related to VNS - Follow up in one month 7. Medication adherence: Plan: - Encourage consistent use of the month-long pill demand planner - Monitor medication adherence and effectiveness - Follow up in one month 8. Counseling: Plan: - Continue therapy - Plan trauma treatment once the patient reaches a better baseline - Follow up in one month 04/11/2024 Generalized anxiety disorder (ICD-10 - F41.1) VNS Interrogated and adjusted VNS Therapy- implanted 11/14/23 DEVICE- [facility] M8103 SERIAL NUMBER- [id number] Normal Mode Output current-1.0mA Frequency- 20Hz Pulse width-250uSec On time-30sec Off time-5 min Duty Cycle-10 Magnet mode Output Current- 0.5mA Pulse Width- 250uSec On time-30 sec VNS Interrogated and adjusted 07/04/2024 Generalized anxiety disorder (ICD-10 - F41.1) 1 1. Mood disorder: - Patient reports increased depressive episodes, irritability, and feeling overwhelmed. Plan: - No changes in medication are recommended at this time. - Encourage the patient to address external stressors, such as managing the kitten's behavior and delegating tasks when feeling overwhelmed. - VNS adjusted. 2. ADHD: - Patient reports difficulty with Jornay's effectiveness later in the day. The current dose is at the maximum. Plan: - Recommend adjusting the timing of Jornay administration to better align with the patient's schedule and needs. - Encourage the patient to discuss behavioral management strategies with their therapist. 3. Migraines: - Patient reports an uptick in migraines due to weather changes. Plan: - Continue current treatment with propranolol twice a day. - The patient is scheduled for an MRI at [place] to further evaluate the migraines. 4. Insomnia: - Patient reports difficulty sleeping due to the kitten's behavior. Plan: - Encourage the patient to manage the kitten's behavior by keeping her in a separate room when necessary. - Continue current treatment with trazodone at bedtime. 5. Pain at incision site: - Patient reports pain at the incision site. No specific cause identified. Plan: - Monitor the pain and encourage the patient to report any changes or worsening. 6. Medication refills: Plan: - Refill Jornay, Auvelity, Rexulti, and Trazodone as needed. - Ensure the patient continues to use a monthly medication demand planner to improve adherence. Follow-up in one month 06/06/2024 Other senior care (current) drug therapy (ICD-10 - Z79.899) 1. Major Depressive Disorder: - Patient reports fewer depressive episodes since starting VNS therapy. - Plan: - Continue current medications: Auvelity 45 mg -105mg twice a day, Rexulti 1 mg daily. - Monitor for any changes in mood or suicidal thoughts. 2. Migraines: - Patient reports an increase in migraines, currently working with a neurologist to control them. - Plan: - Monitor the effectiveness of the new migraine medication (Emgality) prescribed by the neurologist. 3. VNS Therapy: - Patient reports improvement in depression symptoms since starting VNS. - VNS output increased from 1.25 to 1.5 during the visit. - Plan: - Continue to monitor VNS therapy progress and make adjustments as needed. 4. ADHD: - Plan: - Continue current medication: JournA 100 mg every evening. - Monitor for any changes in attention or focus. 5. Nightmares: - Plan: - Continue current medication: Prazosin 10 mg at bedtime. - Monitor for any changes in sleep quality or frequency of nightmares. 6. Insomnia: - Patient reports difficulty staying asleep with Trazodone 100 mg at bedtime. - Plan: - Continue current medication and monitor for any changes in sleep patterns. - Consider adjusting the dose or exploring alternative medications if sleep issues persist. 7. Living Situation and Mental Health: - Patient reports a significant negative impact on mental health due to the current living situation. - Plan: - Clinician to provide a letter to support the patient's appeal to break the lease. - Encourage the patient to continue working with their therapist to manage stress and anxiety related to the living situation. 8. Medication Refills: - Patient has two weeks before needing to refill medications. - Plan: - Instruct the patient to send a message if refills are needed. - Monitor for any changes in medication adherence. Follow-up: - Schedule a follow-up appointment in 4 weeks to assess the patient's progress and make any necessary adjustments to the treatment plan. - Encourage the patient to reach out sooner if any concerns or changes in symptoms arise. 08/01/2024 Generalized anxiety disorder (ICD-10 - F41.1) 1. Major Depressive Disorder: - Patient reports increased depression symptoms due to less sunlight and seasonal changes. - Continue current medications: Auvelity twice a day, Rexulti 1 mg, trazodone 100 mg for insomnia. Plan: - Encourage patient to continue weekly therapy sessions. 2. Generalized Anxiety Disorder: - Patient reports increased anxiety, physical symptoms, and therapist's observation of heightened anxiety. Plan: - Add buspirone 7.5 mg twice a day (morning and night) to help manage anxiety symptoms. - Continue working with therapist on trauma issues. 3. Attention Deficit Hyperactivity Disorder (ADHD): - Patient reports improvement in ADHD symptoms with Jornay taken later at night. Plan: - Continue Jornay for ADHD management. 4. Insomnia: - Patient reports sleeping but still feeling exhausted. Plan: - Continue trazodone 100 mg for insomnia management. 5. Nightmares: Plan: - Continue prazosin 10 mg at bedtime for nightmare management. 6. Vagus Nerve Stimulation (VNS) therapy: - Patient reports no problems or pain with VNS and overall improvement. Plan: - Increase VNS setting to 2. - Monitor patient's response to the increased setting. Follow-up: - Schedule a follow-up appointment in one month to assess patient's response to the added buspirone and increased VNS setting. 08/27/2024 Generalized anxiety disorder (ICD-10 - F41.1) 1. Depression: - Patient reports worsening depression symptoms, difficulty getting out of bed, and decreased interest in activities. Plan: - Encourage patient to establish a routine for medication adherence. - Monitor patient's progress and consider adjusting Rexulti dosage if symptoms do not improve. - Continue Rexulti 1 mg once a day. 2. ADHD: - Patient is currently on Jornay 100 mg for ADHD management. Plan: - Continue Jornay 100 mg and monitor for effectiveness and side effects. 3. PTSD-related nightmares: - Patient reports an increase in nightmares and sleep disturbances. Plan: - Continue prazosin 10 mg at bedtime. - Monitor for improvement in sleep quality and reduction in nightmares. 4. Insomnia: - Patient reports unrefreshing sleep and sleep disturbances. Plan: - Continue trazodone 100 mg at bedtime. - Monitor for improvement in sleep quality. 5. Anxiety: - Patient is currently on buspirone 7.5 mg twice a day for anxiety management. Plan: - Continue buspirone 7.5 mg twice a day. - Monitor for effectiveness and side effects. 6. VNS therapy: - Patient reports voice changes during VNS therapy but is adjusting to the side effect. Plan: - Increase VNS output to 2.25. - Monitor for improvement in symptoms and side effects. - Consider further adjustments if needed. 7. Pharmacy change: - Patient requested to change the pharmacy to [facility] in . Plan: - Update pharmacy information in the system. - Send all prescriptions to the new pharmacy. 8. Address update: - Patient provided a new address: [address] [place] [address] or [place]. Plan: - Update patient's address in the system for accurate record-keeping. 10/08/2024 Generalized anxiety disorder (ICD-10 - F41.1) 1. Medication non-adherence: - Patient reports inconsistent medication intake since mike COVID, mainly missing morning doses. Plan: - Encourage the patient to set alarms for medication reminders and utilize a medication demand planner with morning and night sections to improve adherence. - Follow up in one month to assess improvement in medication adherence. 2. Depression: - Patient reports fluctuating motivation and occasional suicidal thoughts without a plan or intention. - Currently on Rexulti 1 mg daily, Auvelity twice a day, Jornay 100 mg daily. Plan: - Continue current medications and monitor for improvement in depressive symptoms. - Encourage better medication adherence as mentioned above. 3. Anxiety: - Patient is currently on buspirone 7.5 mg twice a day and propranolol 20 mg twice a day for anxiety management. Plan: - Continue current medications and monitor for improvement in anxiety symptoms. - Encourage better medication adherence as mentioned above. - Refill buspirone prescription. 4. Insomnia: - Patient is currently on Trazodone for insomnia management. Plan: - Continue current medication and monitor for improvement in sleep quality. - Encourage better medication adherence as mentioned above. 5. Nightmares: - Patient is currently on Prazosin for nightmare management. Plan: - Continue current medication and monitor for improvement in nightmare frequency and intensity. - Encourage better medication adherence as mentioned above. 6. Vagus Nerve Stimulation (VNS): - Patient reports voice hoarseness and increased breathlessness in cold weather but overall good tolerance of the VNS. Plan: - Increase VNS output to 2.5 (from 2.25) and monitor for any changes in side effects or therapeutic response. - Follow up in one month to assess VNS response and overall mental health status. 7. Medication refills: - Patient has enough Auvelity and recently refilled Rexulti and propranolol prescriptions. Plan: - Refill Jornay and buspirone prescriptions. - Monitor medication supply and refill as needed during follow-up appointments. 08/27/2024 Other nurse companion (current) drug therapy (ICD-10 - Z79.899) 1. Depression: - Patient reports worsening depression symptoms, difficulty getting out of bed, and decreased interest in activities. Plan: - Encourage patient to establish a routine for medication adherence. - Monitor patient's progress and consider adjusting Rexulti dosage if symptoms do not improve. - Continue Rexulti 1 mg once a day. 2. ADHD: - Patient is currently on Jornay 100 mg for ADHD management. Plan: - Continue Jornay 100 mg and monitor for effectiveness and side effects. 3. PTSD-related nightmares: - Patient reports an increase in nightmares and sleep disturbances. Plan: - Continue prazosin 10 mg at bedtime. - Monitor for improvement in sleep quality and reduction in nightmares. 4. Insomnia: - Patient reports unrefreshing sleep and sleep disturbances. Plan: - Continue trazodone 100 mg at bedtime. - Monitor for improvement in sleep quality. 5. Anxiety: - Patient is currently on buspirone 7.5 mg twice a day for anxiety management. Plan: - Continue buspirone 7.5 mg twice a day. - Monitor for effectiveness and side effects. 6. VNS therapy: - Patient reports voice changes during VNS therapy but is adjusting to the side effect. Plan: - Increase VNS output to 2.25. - Monitor for improvement in symptoms and side effects. - Consider further adjustments if needed. 7. Pharmacy change: - [facility] in [place]. Plan: - Update pharmacy information in the system. - Send all prescriptions to the new pharmacy. 8. Address update: - Patient provided a new address: [address] [place] [address] or [place]. Plan: - Update patient's address in the system for accurate record-keeping. 10/08/2024 Other nurse companion (current) drug therapy (ICD-10 - Z79.899) 1. Medication non-adherence: - Patient reports inconsistent medication intake since mike COVID, mainly missing morning doses. Plan: - Encourage the patient to set alarms for medication reminders and utilize a medication demand planner with morning and night sections to improve adherence. - Follow up in one month to assess improvement in medication adherence. 2. Depression: - Patient reports fluctuating motivation and occasional suicidal thoughts without a plan or intention. - Currently on Rexulti 1 mg daily, Auvelity twice a day, Jornay 100 mg daily. Plan: - Continue current medications and monitor for improvement in depressive symptoms. - Encourage better medication adherence as mentioned above. 3. Anxiety: - Patient is currently on buspirone 7.5 mg twice a day and propranolol 20 mg twice a day for anxiety management. Plan: - Continue current medications and monitor for improvement in anxiety symptoms. - Encourage better medication adherence as mentioned above. - Refill buspirone prescription. 4. Insomnia: - Patient is currently on Trazodone for insomnia management. Plan: - Continue current medication and monitor for improvement in sleep quality. - Encourage better medication adherence as mentioned above. 5. Nightmares: - Patient is currently on Prazosin for nightmare management. Plan: - Continue current medication and monitor for improvement in nightmare frequency and intensity. - Encourage better medication adherence as mentioned above. 6. Vagus Nerve Stimulation (VNS): - Patient reports voice hoarseness and increased breathlessness in cold weather but overall good tolerance of the VNS. Plan: - Increase VNS output to 2.5 (from 2.25) and monitor for any changes in side effects or therapeutic response. - Follow up in one month to assess VNS response and overall mental health status. 7. Medication refills: - Patient has enough Auvelity and recently refilled Rexulti and propranolol prescriptions. Plan: - Refill Jornay and buspirone prescriptions. - Monitor medication supply and refill as needed during follow-up appointments. 08/01/2024 Other nurse companion (current) drug therapy (ICD-10 - Z79.899) 1. Major Depressive Disorder: - Patient reports increased depression symptoms due to less sunlight and seasonal changes. - Continue current medications: Auvelity twice a day, Rexulti 1 mg, trazodone 100 mg for insomnia. Plan: - Encourage patient to continue weekly therapy sessions. 2. Generalized Anxiety Disorder: - Patient reports increased anxiety, physical symptoms, and therapist's observation of heightened anxiety. Plan: - Add buspirone 7.5 mg twice a day (morning and night) to help manage anxiety symptoms. - Continue working with therapist on trauma issues. 3. Attention Deficit Hyperactivity Disorder (ADHD): - Patient reports improvement in ADHD symptoms with Jornay taken later at night. Plan: - Continue Jornay for ADHD management. 4. Insomnia: - Patient reports sleeping but still feeling exhausted. Plan: - Continue trazodone 100 mg for insomnia management. 5. Nightmares: Plan: - Continue prazosin 10 mg at bedtime for nightmare management. 6. Vagus Nerve Stimulation (VNS) therapy: - Patient reports no problems or pain with VNS and overall improvement. Plan: - Increase VNS setting to 2. - Monitor patient's response to the increased setting. Follow-up: - Schedule a follow-up appointment in one month to assess patient's response to the added buspirone and increased VNS setting. 07/04/2024 Other nurse companion (current) drug therapy (ICD-10 - Z79.899) 1 1. Mood disorder: - Patient reports increased depressive episodes, irritability, and feeling overwhelmed. Plan: - No changes in medication are recommended at this time. - Encourage the patient to address external stressors, such as managing the kitten's behavior and delegating tasks when feeling overwhelmed. - VNS adjusted. 2. ADHD: - Patient reports difficulty with Jornay's effectiveness later in the day. The current dose is at the maximum. Plan: - Recommend adjusting the timing of Jornay administration to better align with the patient's schedule and needs. - Encourage the patient to discuss behavioral management strategies with their therapist. 3. Migraines: - Patient reports an uptick in migraines due to weather changes. Plan: - Continue current treatment with propranolol twice a day. - The patient is scheduled for an MRI at [place] to further evaluate the migraines. 4. Insomnia: - Patient reports difficulty sleeping due to the kitten's behavior. Plan: - Encourage the patient to manage the kitten's behavior by keeping her in a separate room when necessary. - Continue current treatment with trazodone at bedtime. 5. Pain at incision site: - Patient reports pain at the incision site. No specific cause identified. Plan: - Monitor the pain and encourage the patient to report any changes or worsening. 6. Medication refills: Plan: - Refill Jornay, Auvelity, Rexulti, and Trazodone as needed. - Ensure the patient continues to use a monthly medication demand planner to improve adherence. Follow-up in one month 06/06/2024 Status post placement of VNS (vagus nerve stimulation) device (ICD-10 - Z96.89) VNS Interrogated and adjusted VNS Therapy- implanted 11/14/23 DEVICE- [facility] M8103 SERIAL NUMBER- [id number] Normal Mode Output current-1.50mA Frequency- 20Hz Pulse width-250uSec On time-30sec Off time-5 min Duty Cycle-10 Magnet mode Output Current- 0.5mA Pulse Width- 250uSec On time-30 sec 1. Major Depressive Disorder: - Patient reports fewer depressive episodes since starting VNS therapy. - Plan: - Continue current medications: Auvelity 45 mg -105mg twice a day, Rexulti 1 mg daily. - Monitor for any changes in mood or suicidal thoughts. 2. Migraines: - Patient reports an increase in migraines, currently working with a neurologist to control them. - Plan: - Monitor the effectiveness of the new migraine medication (Emgality) prescribed by the neurologist. 3. VNS Therapy: - Patient reports improvement in depression symptoms since starting VNS. - VNS output increased from 1.25 to 1.5 during the visit. - Plan: - Continue to monitor VNS therapy progress and make adjustments as needed. 4. ADHD: - Plan: - Continue current medication: JournA 100 mg every evening. - Monitor for any changes in attention or focus. 5. Nightmares: - Plan: - Continue current medication: Prazosin 10 mg at bedtime. - Monitor for any changes in sleep quality or frequency of nightmares. 6. Insomnia: - Patient reports difficulty staying asleep with Trazodone 100 mg at bedtime. - Plan: - Continue current medication and monitor for any changes in sleep patterns. - Consider adjusting the dose or exploring alternative medications if sleep issues persist. 7. Living Situation and Mental Health: - Patient reports a significant negative impact on mental health due to the current living situation. - Plan: - Clinician to provide a letter to support the patient's appeal to break the lease. - Encourage the patient to continue working with their therapist to manage stress and anxiety related to the living situation. 8. Medication Refills: - Patient has two weeks before needing to refill medications. - Plan: - Instruct the patient to send a message if refills are needed. - Monitor for any changes in medication adherence. Follow-up: - Schedule a follow-up appointment in 4 weeks to assess the patient's progress and make any necessary adjustments to the treatment plan. - Encourage the patient to reach out sooner if any concerns or changes in symptoms arise. 04/11/2024 Other senior care (current) drug therapy (ICD-10 - Z79.899) VNS Interrogated and adjusted VNS Therapy- implanted 11/14/23 DEVICE- [employer] M8103 SERIAL NUMBER- [id number] Normal Mode Output current-1.0mA Frequency- 20Hz Pulse width-250uSec On time-30sec Off time-5 min Duty Cycle-10 Magnet mode Output Current- 0.5mA Pulse Width- 250uSec On time-30 sec VNS Interrogated and adjusted 05/09/2024 Other senior care (current) drug therapy (ICD-10 - Z79.899) VNS Interrogated and adjusted VNS Therapy- implanted 11/14/23 DEVICE- [employer] M8103 SERIAL NUMBER- [id number] Normal Mode Output current-1.25mA Frequency- 20Hz Pulse width-250uSec On time-30sec Off time-5 min Duty Cycle-10 Magnet mode Output Current- 0.5mA Pulse Width- 250uSec On time-30 sec 1. Major Depressive Disorder, severe: - Continue Auvelity 45 mg, 105 mg twice a day - Continue Rexulti 1 mg daily - Continue VNS therapy Plan: - Monitor response to medications and VNS therapy - Follow up in one month 2. ADHD, primarily inattentive type: - Continue Journey 100 mg at bedtime Plan: - Monitor response to medication - Follow up in one month 3. PTSD nightmares: - Continue Prazosin 5 mg (two at bedtime) Plan: - Monitor response to medication - Follow up in one month 4. Insomnia: - Continue Trazodone 100 mg at bedtime Plan: - Monitor sleep patterns and response to medication - Follow up in one month 5. Migraines: Plan: - Patient to contact PCP for referral to a specialist - Monitor frequency and severity of migraines - Follow up in one month 6. VNS-related pain: Plan: - Schedule follow-up with surgeon - Monitor pain and discomfort related to VNS - Follow up in one month 7. Medication adherence: Plan: - Encourage consistent use of the month-long pill demand planner - Monitor medication adherence and effectiveness - Follow up in one month 8. Counseling: Plan: - Continue therapy - Plan trauma treatment once the patient reaches a better baseline - Follow up in one month 07/04/2024 Status post placement of VNS (vagus nerve stimulation) device (ICD-10 - Z96.89) VNS Interrogated and adjusted VNS Therapy- implanted 11/14/23 DEVICE- [employer] M8103 SERIAL NUMBER- [id number] Normal Mode Output current-1.75mA Frequency- 20Hz Pulse width-250uSec On time-30sec Off time-5 min Duty Cycle-10 Magnet mode Output Current- 0.5mA Pulse Width- 250uSec On time-30 sec 1 1. Mood disorder: - Patient reports increased depressive episodes, irritability, and feeling overwhelmed. Plan: - No changes in medication are recommended at this time. - Encourage the patient to address external stressors, such as managing the kitten's behavior and delegating tasks when feeling overwhelmed. - VNS adjusted. 2. ADHD: - Patient reports difficulty with Jornay's effectiveness later in the day. The current dose is at the maximum. Plan: - Recommend adjusting the timing of Jornay administration to better align with the patient's schedule and needs. - Encourage the patient to discuss behavioral management strategies with their therapist. 3. Migraines: - Patient reports an uptick in migraines due to weather changes. Plan: - Continue current treatment with propranolol twice a day. - The patient is scheduled for an MRI at [place] to further evaluate the migraines. 4. Insomnia: - Patient reports difficulty sleeping due to the kitten's behavior. Plan: - Encourage the patient to manage the kitten's behavior by keeping her in a separate room when necessary. - Continue current treatment with trazodone at bedtime. 5. Pain at incision site: - Patient reports pain at the incision site. No specific cause identified. Plan: - Monitor the pain and encourage the patient to report any changes or worsening. 6. Medication refills: Plan: - Refill Jornay, Auvelity, Rexulti, and Trazodone as needed. - Ensure the patient continues to use a monthly medication demand planner to improve adherence. Follow-up in one month 08/01/2024 Status post placement of VNS (vagus nerve stimulation) device (ICD-10 - Z96.89) VNS Interrogated and adjusted VNS Therapy- implanted 11/14/23 DEVICE- [employer] M8103 SERIAL NUMBER- [id number] Normal Mode Output current-1.75mA Frequency- 20Hz Pulse width-250uSec On time-30sec Off time-5 min Duty Cycle-10 Magnet mode Output Current- 0.5mA Pulse Width- 250uSec On time-30 sec 1. Major Depressive Disorder: - Patient reports increased depression symptoms due to less sunlight and seasonal changes. - Continue current medications: Auvelity twice a day, Rexulti 1 mg, trazodone 100 mg for insomnia. Plan: - Encourage patient to continue weekly therapy sessions. 2. Generalized Anxiety Disorder: - Patient reports increased anxiety, physical symptoms, and therapist's observation of heightened anxiety. Plan: - Add buspirone 7.5 mg twice a day (morning and night) to help manage anxiety symptoms. - Continue working with therapist on trauma issues. 3. Attention Deficit Hyperactivity Disorder (ADHD): - Patient reports improvement in ADHD symptoms with Jornay taken later at night. Plan: - Continue Jornay for ADHD management. 4. Insomnia: - Patient reports sleeping but still feeling exhausted. Plan: - Continue trazodone 100 mg for insomnia management. 5. Nightmares: Plan: - Continue prazosin 10 mg at bedtime for nightmare management. 6. Vagus Nerve Stimulation (VNS) therapy: - Patient reports no problems or pain with VNS and overall improvement. Plan: - Increase VNS setting to 2. - Monitor patient's response to the increased setting. Follow-up: - Schedule a follow-up appointment in one month to assess patient's response to the added buspirone and increased VNS setting. 10/08/2024 Status post placement of VNS (vagus nerve stimulation) device (ICD-10 - Z96.89) VNS Interrogated and adjusted VNS Therapy- implanted 11/14/23 DEVICE- [employer] M8103 SERIAL NUMBER- [id number] Normal Mode Output current-2.50mA Frequency- 20Hz Pulse width-250uSec On time-30sec Off time-5 min Duty Cycle-10 Magnet mode Output Current- 0.5mA Pulse Width- 250uSec On time-30 sec 1. Medication non-adherence: - Patient reports inconsistent medication intake since mike COVID, mainly missing morning doses. Plan: - Encourage the patient to set alarms for medication reminders and utilize a medication demand planner with morning and night sections to improve adherence. - Follow up in one month to assess improvement in medication adherence. 2. Depression: - Patient reports fluctuating motivation and occasional suicidal thoughts without a plan or intention. - Currently on Rexulti 1 mg daily, Auvelity twice a day, Jornay 100 mg daily. Plan: - Continue current medications and monitor for improvement in depressive symptoms. - Encourage better medication adherence as mentioned above. 3. Anxiety: - Patient is currently on buspirone 7.5 mg twice a day and propranolol 20 mg twice a day for anxiety management. Plan: - Continue current medications and monitor for improvement in anxiety symptoms. - Encourage better medication adherence as mentioned above. - Refill buspirone prescription. 4. Insomnia: - Patient is currently on Trazodone for insomnia management. Plan: - Continue current medication and monitor for improvement in sleep quality. - Encourage better medication adherence as mentioned above. 5. Nightmares: - Patient is currently on Prazosin for nightmare management. Plan: - Continue current medication and monitor for improvement in nightmare frequency and intensity. - Encourage better medication adherence as mentioned above. 6. Vagus Nerve Stimulation (VNS): - Patient reports voice hoarseness and increased breathlessness in cold weather but overall good tolerance of the VNS. Plan: - Increase VNS output to 2.5 (from 2.25) and monitor for any changes in side effects or therapeutic response. - Follow up in one month to assess VNS response and overall mental health status. 7. Medication refills: - Patient has enough Auvelity and recently refilled Rexulti and propranolol prescriptions. Plan: - Refill Jornay and buspirone prescriptions. - Monitor medication supply and refill as needed during follow-up appointments. 08/27/2024 Status post placement of VNS (vagus nerve stimulation) device (ICD-10 - Z96.89) VNS Interrogated and adjusted VNS Therapy- implanted 11/14/23 DEVICE- [facility] [id number] SERIAL NUMBER- [id number] Normal Mode Output current-2.25mA Frequency- 20Hz Pulse width-250uSec On time-30sec Off time-5 min Duty Cycle-10 Magnet mode Output Current- 0.5mA Pulse Width- 250uSec On time-30 sec 1. Depression: - Patient reports worsening depression symptoms, difficulty getting out of bed, and decreased interest in activities. Plan: - Encourage patient to establish a routine for medication adherence. - Monitor patient's progress and consider adjusting Rexulti dosage if symptoms do not improve. - Continue Rexulti 1 mg once a day. 2. ADHD: - Patient is currently on Jornay 100 mg for ADHD management. Plan: - Continue Jornay 100 mg and monitor for effectiveness and side effects. 3. PTSD-related nightmares: - Patient reports an increase in nightmares and sleep disturbances. Plan: - Continue prazosin 10 mg at bedtime. - Monitor for improvement in sleep quality and reduction in nightmares. 4. Insomnia: - Patient reports unrefreshing sleep and sleep disturbances. Plan: - Continue trazodone 100 mg at bedtime. - Monitor for improvement in sleep quality. 5. Anxiety: - Patient is currently on buspirone 7.5 mg twice a day for anxiety management. Plan: - Continue buspirone 7.5 mg twice a day. - Monitor for effectiveness and side effects. 6. VNS therapy: - Patient reports voice changes during VNS therapy but is adjusting to the side effect. Plan: - Increase VNS output to 2.25. - Monitor for improvement in symptoms and side effects. - Consider further adjustments if needed. 7. Pharmacy change: - Patient requested to change the pharmacy to [facility] in [place]. Plan: - Update pharmacy information in the system. - Send all prescriptions to the new pharmacy. 8. Address update: - Patient provided a new address: [address] [place] [address] or [place]. Plan: - Update patient's address in the system for accurate record-keeping. Plan Of Treatment Next Appt Details Provider Name:Paddy jane, 11/05/2024 01:00:00 PM, [address], [facility] [address], [place], [address], Insurance Providers Payer Name Payer Address Payer Phone Subscriber Number Group Number Insured Name Patient Relationship to Insured Coverage Start Date Coverage End Date [facility] [address] [place] [address] [id number] DYLON OLIVAS Self - patient is the insured Medical (General) History Medical History History ICD Code Problems: Anxiety Attention deficit hyperactivity disorder Generalized anxiety disorder Headache 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
--- OUTSIDE RECORDS SUMMARY | 2024-10-29 12:49 | XMS_ITS | Patient Health Summary ---
Author Organization [facility] Address [address] [place] [address] Care Team Providers Care Aircraft Refueller Name Role Phone Jamie Casper DO Primary Care Provider [phone] Note from [facility],non-owned Affiliates and Associated Physician Practices is amultiple site organization consisting of ambulatory clinics and hospital sitesin [place], [place], [place] and [place]. This disclosure is being madepursuant to the Care Everywhere program and may not contain all information available regarding this patient. Last updated 18.[facility] Allergies No known active allergies Medications * Be aware that medications may not be up to date on this document. Alwaysverify current medications with the patient. * Jornay PM 100 MG CP24(Started 10/11/2023) TAKE 1 CAPSULE BY MOUTH EVERY DAY AT BEDTIME * traZODone (Desyrel) 150 MG tablet(Started 09/12/2023) Take 1 (one) tablet by mouth * Auvelity 45-105 MG TBCR(Started 09/13/2023) Take 1 (one) tablet by mouth 2 times daily * Rexulti 1 MG tablet(Started 10/10/2023) Take 1 (one) tablet by mouth once daily * desmopressin (DDAVP) 0.2 MG tablet(Started 09/26/2023) Take 2 (two) tablets by mouth at bedtime * lisinopril (Prinivil; Zestril) 10 MG tablet(Started 08/21/2023) * amLODIPine (Norvasc) 10 MG tablet(Started 07/29/2023) * prazosin (Minipress) 5 MG capsule(Started 09/26/2023) TAKE 1 CAPSULE BY MOUTH EVERY DAY AT BEDTIME * prazosin (Minipress) 2 MG capsule(Started 10/16/2023) * propranolol (Inderal) 20 MG tablet(Started 10/11/2023) Take 1 (one) tablet by mouth 2 times daily * levonorgestrel (Mirena) 20 MCG/DAY IUD by Intrauterine route as directed * HYDROcodone-acetaminophen (Monarch) 5-325 MG tablet(Started 11/14/2023) Take 1 (one) tablet by mouth every 6 hours as needed for Pain Active Problems Problem Noted Date Diagnosed Date Allergic rhinitis 11/12/2023 11/12/2023 Arthralgia of elbow 11/12/2023 11/12/2023 Atopic dermatitis 11/12/2023 11/12/2023 Benign neoplasm of skin 11/12/2023 11/12/19 24 Diurnal only enuresis 11/12/2023 11/12/2023 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 11/12/2023 Finding of above normal blood pressure 11/12/2023 Hyperopia 11/12/2023 11/12/2023 Obesity 11/12/2023 11/12/2023 Regular astigmatism 11/12/2023 11/12/2023 Suppurative otitis media of right ear 11/12/2023 11/12/2023 Tooth pain 11/12/2023 11/12/2023 Depression with anxiety 10/18/2023 10/18/19 24 Disruptive behavior disorder 10/18/2023 Episode of recurrent major depressive disorder 0 [...] Sex Assigned at Female 10/23/2023 10:53 AM SYSTEM AUDITOR Gender Identity Female 10/23/2023 10:53 AM SYSTEM AUDITOR Sexual Orientation Lesbian 10/23/2023 10 :53 AM SYSTEM AUDITOR Last Filed Vital Signs Vital Sign Reading Time Taken Comments Blood Pressure 113/81 11/29/2023 9:34 AM SYSTEM AUDITOR Pulse 88 11/29/2023 9:34 AM SYSTEM AUDITOR Temperature 36.6 ??C (97.9 ??F) 11/29/2023 9:34 AM CS T Respiratory Rate 18 11/29/2023 9:34 AM SYSTEM AUDITOR Oxygen Saturation 97% 11/29/2023 9:34 AM SYSTEM AUDITOR Inhaled Oxygen Concentration - - Weight 114 kg (251 lb 6.4 oz) 11/29/2023 9:34 AM SYSTEM AUDITOR Height 154.9 cm (5' 1 ) 11/29/2023 9:34 AM SYSTEM AUDITOR Body Mass Index 47.5 11/29/2023 9:34 AM SYSTEM AUDITOR Medical Devices Implanted Type Area Brass Burnisher Device Identifier Shelf Expiration Date Model / Serial / Lot Vns Therapy: Symmetry Implanted:Qty: 1 on 11/14/2023 by Domenico Connolly MD at [facility] Implant Non-Ortho Left: Chest [employer]iva[employer] 10/25/2024 [id number] / [id number] / N/A Description:VNS GENERATOR GMDN: [id number] Lead Nrstm 43cm 2mm Vns Perenniaflex - [id number] Implanted:Qty: 1 on 11/14/2023 by Domenico Connolly MD at [facility] Left: Chest [employer] 304-20 / [id number] / Procedures * XR NECK SOFT TISSUE(Performed 11/14/2023) Performed for Episode of recurrent major depressive disorder, unspecified depression episode severity (HCC), S/P placement of VNS (vagus nerve stimulation) device * XR CHEST 1VW(Performed 11/14/2023) Performed for Episode of recurrent major depressive disorder, unspecified depression episode severity (HCC), S/P placement of VNS (vagus nerve stimulation) device * [place] OPEN IMPLANTATION CRANIAL NERVE EMI & PULSE GEN(Performed 11/14/2023) Performed for Depression, unspecified depression type * ENDOTRACHEAL TUBE NOTE(Performed 11/14/2023) * HCG URINE QUALITATIVE - POCT (IP) INTERFACED(Performed 11/14/2023) * URINALYSIS W/MICROSCOPIC REFLEX TO CULTURE(Performed 10/18/2023) Performed for Pre-op testing * PTT [facility](Performed 10/18/2023) Performed for Pre-op testing * PT-INR [facility](Performed 10/18/2023) Performed for Pre-op testing * CBC W AUTO DIFFERENTIAL(Performed 10/18/2023) Performed for Pre-op testing * BASIC METABOLIC PANEL (CALCIUM TOTAL)(Performed 10/18/2023) Performed for Pre-op testing Results * XR NECK SOFT TISSUE (11/14/2023 2:21 PM SYSTEM AUDITOR) Anatomical Region Laterality Modality Head Radiographic Frances ging 11/15/2023 10:1 9 AM SYSTEM AUDITOR Narrative 11/15/2023 10:43 AM SYSTEM AUDITOR PROCEDURE: ??XR NECK SOFT TISSUE, DATE/TIME OF EXAM: ??11/14/2023 2:21 PM, LOCATION ??[facility] INDICATION: F33.9: Episode of recurrent major depressive disorder, unspecified depression episode severity (CMS-HCC) Z96.89: S/P placement of VNS (vagus nerve stimulation) device ADDITIONAL CLINICAL INFORMATION: Ordering Provider Reason For Exam: ??s/p VNS placement COMPARISON: None. FINDINGS/IMPRESSION: An intact vagal nerve stimulator leads traverses the left neck soft tissues and loops within the left paraspinal region. The visible cervical spine is unremarkable. > Dictated by Evan Chow DO (Acquisition Marketing Manager) IAlessandro have personally reviewed and interpreted this examination/study. > Interpreting Provider: Alessandro Jeffries on 11/15/2023 10:43 AM Procedure Note Alessandro Jeffries MD - 11/15/2023 PROCEDURE: XR NECK SOFT TISSUE, DATE/TIME OF EXAM: 11/14/2023 2:21 PM, LOCATION [facility] INDICATION: F33.9: Episode of recurrent major depressive disorder, unspecified depression episode severity (CMS-HCC) Z96.89: S/P placement of VNS (vagus nerve stimulation) device ADDITIONAL CLINICAL INFORMATION: Ordering Provider Reason For Exam: s/p VNS placement COMPARISON: None. FINDINGS/IMPRESSION: An intact vagal nerve stimulator leads traverses the left neck softtissues and loops within the left paraspinal region. The visible cervical spineis unremarkable. > Dictated by Evan Chow DO (Acquisition Marketing Manager) Alessandro Avina have personally reviewed and interpreted this examination/study. > Interpreting Provider: Alessandro Jeffries on 11/15/2023 10:43 AM Domenico Connolly MD DIAGNOSTIC IMAGING ORDERABLES * XR CHEST 1VW (11/14/2023 2:21 PM SYSTEM AUDITOR) Anatomical Region Laterality Modality Chest Radiographic Frances ging 11/15/2023 10:1 5 AM SYSTEM AUDITOR Narrative 11/15/2023 10:44 AM SYSTEM AUDITOR PROCEDURE: ??XR CHEST 1VW, DATE/TIME OF EXAM: ??11/14/2023 2:21 PM, LOCATION [facility] INDICATION: F33.9: Episode of recurrent major depressive disorder, unspecified depression episode severity (CMS-HCC) Z96.89: S/P placement of VNS (vagus nerve stimulation) device ADDITIONAL CLINICAL INFORMATION: Ordering Provider Reason For Exam: ??s/p VNS placement COMPARISON: None. FINDINGS/IMPRESSION: Low lung volumes with associated bronchovascular crowding. A left chest wall vagal nerve stimulator generator is present with an intact lead extending to the left neck soft tissues. There is no focal consolidation, pleural effusion, or pneumothorax. The cardiomediastinal silhouette is normal. The visible bony thorax is intact. Report dictated by Evan Chow DO (residential property manager). ?? Alessandro Avina have personally reviewed and interpreted this examination/study. > Interpreting Provider: Alessandro Jeffries on 11/15/2023 10:44 AM Procedure Note Alessandro Jeffries MD - 11/15/2023 PROCEDURE: XR CHEST 1VW, DATE/TIME OF EXAM: 11/14/2023 2:21 PM, LOCATION [facility] INDICATION: F33.9: Episode of recurrent major depressive disorder, unspecified depression episode severity (CMS-HCC) Z96.89: S/P placement of VNS (vagus nerve stimulation) device ADDITIONAL CLINICAL INFORMATION: Ordering Provider Reason For Exam: s/p VNS placement COMPARISON: None. FINDINGS/IMPRESSION: Low lung volumes with associated bronchovascular crowding. A left chest wall vagal nerve stimulator generator is present with an intact lead extending to the left neck soft tissues. There is no focalconsolidation, pleural effusion, or pneumothorax. The cardiomediastinal silhouette is normal. The visible bony thorax is intact. Report dictated by Evan Chow DO (residential property manager). I, Alessandro Jeffries have personally reviewed and interpreted this examination/study. > Interpreting Provider: Alessandro Jeffries on 11/15/2023 10:44 AM Domenico Connolly MD DIAGNOSTIC IMAGING ORDERABLES * ETT LINE PERFORMABLE (11/14/2023 11:35 AM SYSTEM AUDITOR) Narrative Jamil Zuniga Anes Asst - 11/14/2023 11:35 AM SYSTEM AUDITOR Jamil Zuniga Anes Asst ? 11/14/2023 11:36 AM Endotracheal Tube Placement: ? Patient Location: OR. Intubation Event Date/Time: ??11/14/2023 11:15 AM Procedure: intubation (16128). Procedure Section: ?? Sedation: under general anesthesia. Indications for Airway Management: ??anesthesia Procedure pretreatments used? ??No Induction: standard IV Patient Position: ??sniffing and supine Mask Ventilation: easy with oral airway. Blade Type: Video Blade Size: 3 Laryngoscopy View: grade 1 (full cords) Intubation Adjuncts: stylet and video laryngoscope Tube: endotracheal tube Placement: oral Tube type: cuff - inflated Tube Size (MM): 7 Depth of Insertion (CM): 21 Measured From: teeth Cuff volume (mL): ??10 Cuff Inflated With: air Number of Attempts: 1. Placement Verified By: direct visualization, bilateral breath sounds, chest auscultation and CO2 detector CXR Findings: ETT in proper place. Tube secured with: ??adhesive tape and ETT cabral. Dentition unchanged? ??Yes Difficult Airway? ??No. Procedure Start Time: 11/14/2023 11:15 AM. Procedure End Time: 11/14/2023 11:15 AM. Procedure Total Time: 0 ??minutes. Staff Section ? Anesthesia Provider: Jamil Zuniga Anes Asst, Performed the procedure ? Provider #1: Federico Sandoval MD. Federico Sandoval MD GENERAL ANESTHESIA O RDERABLES * HCG URINE QUALITATIVE - POCT (IP) INTERFACED (11/14/2023 9:57 AM SYSTEM AUDITOR) HCG Qual Urine Negative Negative 11/14/2023 10:04 AM [facility] Urine URINE / Unknown 11/14/2023 9 :57 AM SYSTEM AUDITOR 11/14/2023 10:04 AM SYSTEM AUDITOR Domenico Connolly MD LAB - POINT OF CARE ORDERABLES Performing Organization Address [facility]/ZIP Co de Phone Number [facility] [address] [place] [phone], [facility] [phone] * (ABNORMAL) URINALYSIS W/MICROSCOPIC REFLEX TO CULTURE (10/18/2023 11:00 AM SYSTEM AUDITOR) Color UA Yellow Straw, Yellow 10/18/2023 11:34 AM [facility] Clarity UA Slt Cloudy(A) Clear 10/18/2023 11:34 AM [facility] Specific [place] UA 1.024 1.005 - 1.030 10/18/2023 11:34 AM [facility] pH UA 6.0 5.0 - 8.0 pH 10/18/2023 11:34 AM [facility] Protein UA Negative Negative 10/18/2023 11:34 AM [facility] Glucose UA Negative Negative 10/18/2023 11:34 AM [facility] Ketone UA Negative Negative 10/18/2023 11:34 AM [facility] Bilirubin UA Negative Negative 10/18/2023 11:34 AM [facility] Blood UA Negative Negative 10/18/2023 11:34 AM [facility] Nitrite UA Negative Negative 10/18/2023 11:34 AM [facility] Leukocyte Esterase Negative Negative 10/18/2023 11:34 AM [facility] Urobilinogen UA Negative Negative mg/dL 10/18/2023 11:34 AM [facility] RBC UA 0-2 None Seen, 0-2, 3-5 /HPF 10/18/2023 11:34 AM [facility] WBC UA 0-5 None Seen, 0-5 /HPF 10/18/2023 11:34 AM [facility] Squamous Epithelial Cells UA 6-10(A) None Seen, 0-2, 3-5 /HPF 10/18/2023 11:34 AM [facility] Mucus UA 1+ /LPF 10/18/2023 11:34 AM [facility] Urine URINE SPECIMEN OBTAINED BY CLEAN CATCH PROCEDURE / Unknown Collection / Unknown 10/18/2023 11:00 AM SYSTEM AUDITOR 10/18/2023 11:18 AM SYSTEM AUDITOR Narrative [facility] - 10/18/2023 11:34 AM SYSTEM AUDITOR Culture Not Indicated Domenico Connolly MD LAB - URINALYSIS OR DERABLES Performing Organization Address City/[facility]/ZIP Co de Phone Number [address] [address], [place] [phone] * PTT [facility] (10/18/2023 10:57 AM [facility]) APTT 27.2 23.0 - 38.4 Seconds 10/18/2023 11:48 AM [facility] Comment:Suggested therapeuti c range for full dose I.V. unfractionated heparin therapy for venous thromboembolism is 71 to 109 seconds. Blood BLOOD SPECIMEN / Unknown Lab Venipuncture / Unknown 10/18/2023 10:57 AM SYSTEM AUDITOR 10/18/2023 11:17 AM SYSTEM AUDITOR Domenico Connolly MD LAB - COAGULATION O RDERABLES Performing Organization Address City/[facility]/ZIP Co de Phone Number [address] [address], [place] [phone] * PT-INR [facility] (10/18/2023 10:57 AM [facility]) PT 13.3 12.1 - 14.8 Seconds 10/18/2023 11:48 AM [facility] INR 1.0 See Comment 10/18/2023 11:48 AM [facility] Comment:The suggested therap eutic range for standard coumadin (warfarin) therapy is an INR of 2.0-3.0. For high-risk patients (Mechanical Mitral Valve Prosthesis, etc.), the suggested prophylactic therapeutic range is an INR of 2.5-3.5. Blood BLOOD SPECIMEN / Unknown Lab Venipuncture / Unknown 10/18/2023 10:57 AM SYSTEM AUDITOR 10/18/2023 11:17 AM SYSTEM AUDITOR Domenico Connolly MD LAB - COAGULATION O RDERABLES [facility] [address] [place] [address], [facility] [phone] * (ABNORMAL) CBC WITH DIFFERENTIAL (10/18/2023 10:57 AM [facility]) WBC 12.0(H) 4.0 - 10.7 x10E9/L 10/18/2023 11:39 AM [facility] RBC Count 4.69 3.90 - 5.20 x10E12/L 10/18/2023 11:39 AM [facility] Hemoglobin 13.2 11.9 - 15.8 g/dL 10/18/2023 11:39 AM [facility] Hematocrit 39.6 34.8 - 46.1 % 10/18/2023 11:39 AM [facility] MCV 84.4 80.0 - 98.0 fL 10/18/2023 11:39 AM [facility] MCH 28.1 26.7 - 33.6 pg 10/18/2023 11:39 AM [facility] MCHC 33.3 31.7 - 36.3 g/dL 10/18/2023 11:39 AM [facility] RDW-CV 13.2 11.3 - 14.8 % 10/18/2023 11:39 AM [facility] Platelet Count 388 150 - 420 x10E9/L 10/18/2023 11:39 AM [facility] MPV 9.7 7.8 - 11.4 fL 10/18/2023 11:39 AM [facility] Neutrophil % 68.6 41.0 - 74.0 % 10/18/2023 11:39 AM [facility] Lymphocyte % 19.9 17.0 - 47.0 % 10/18/2023 11:39 AM [facility] Monocyte % 8.7 3.0 - 11.0 % 10/18/2023 11:39 AM [facility] Eosinophil % 1.9 0.0 - 7.0 % 10/18/2023 11:39 AM [facility] Basophil % 0.5 0.0 - 1.6 % 10/18/2023 11:39 AM [facility] Immature Granulocytes % 0.4 0.0 - 1.0 % 10/18/2023 11:39 AM [facility] Neutrophil Absolute 8.22(H) 1.60 - 7.50 x10E9/L 10/18/2023 11:39 AM [facility] Lymphocyte Absolute 2.38 1.00 - 4.40 x10E9/L 10/18/2023 11:39 AM [facility] Monocyte Absolute 1.04(H) 0.15 - 1.00 x10E9/L 10/18/2023 11:39 AM [facility] Eosinophil Absolute 0.23 0.00 - 0.60 x10E9/L 10/18/2023 11:39 AM [facility] Basophil Absolute 0.06 0.00 - 0.13 x10E9/L 10/18/2023 11:39 AM [facility] Blood BLOOD SPECIMEN / Unknown Lab Venipuncture / Unknown 10/18/2023 10:57 AM SYSTEM AUDITOR 10/18/2023 11:33 AM [facility] Domenico Connolly MD LAB - HEMATOLOGY OR DERABLES [facility] [address] [place] [address], [facility] [phone] * BASIC METABOLIC PANEL (CALCIUM TOTAL) (10/18/2023 10:57 AM [facility]) BUN 12 7 - 26 mg/dL 10/18/2023 12:01 PM [facility] Creatinine 0.66 0.56 - 0.96 mg/dL 10/18/2023 12:01 PM [facility] Sodium 140 136 - 145 mmol/L 10/18/2023 12:01 PM [facility] Potassium 4.2 3.5 - 4.5 mmol/L 10/18/2023 12:01 PM [facility] Chloride 105 98 - 107 mmol/L 10/18/2023 12:01 PM [facility] CO2 25 22 - 29 mmol/L 10/18/2023 12:01 PM [facility] Glucose 78 70 - 115 mg/dL 10/18/2023 12:01 PM [facility] Calcium 9.4 8.4 - 10.2 mg/dL 10/18/2023 12:01 PM [facility] Anion Gap 10 6 - 16 10/18/2023 12:01 PM [facility] BUN/Creatinine Ratio 18 7 - 23 10/18/2023 12:01 PM [facility] Osmolality Calculated 289 275 - 295 mOsm/kg 10/18/2023 12:01 PM [facility] eGFR by CKD-EPI >90 >=90 mL/min/1.7 3 m2 10/18/2023 12:01 PM [facility] Blood BLOOD SPECIMEN / Unknown Lab Venipuncture / Unknown 10/18/2023 10:57 AM SYSTEM AUDITOR 10/18/2023 11:33 AM [facility] Domenico Connolly MD LAB - CHEMISTRY ORD ERABLES [facility] [address] [place] [address], [facility] [phone] Care Teams Aircraft Refueller Relationship Specialty Start Date End Date Jamie Casper DO PCP - General Family Medicine 10/18/23
--- OUTSIDE RECORDS SUMMARY | 2024-10-29 12:49 | XMS_ITS | Encounter Summary ---
Author Organization [facility] Address [facility] [facility] [place] [address] [place] [address] Care Team Providers Care Shirring Tender Name Role Phone Jamie Casper DO Primary Care Provider Encounter Details Date Type Department Care Team (Latest Contact Info) Description 08/06/2018 Abstract [facility] , Boy Salomon MD Social History Tobacco Use Types Packs/Day Years Used Date Smoking Tobacco: Never Assessed Comments Unknown Sex and Gender Information Value Date Recorded Sex Assigned at Not on file Legal Sex Female 7:39 PM CDT Gender Identity Female 06/16/2022 5:37 AM CDT Sexual Orientation Lesbian or Carey 06/16/2022 5: 37 AM CDT documented as of this encounter Plan of Treatment Not on file documented as of this encounter Visit Diagnoses Not on filedocumented in this encounter Additional Health Concerns Infection Onset Date Last Indicated Resolved Time COVID-19 Rule Out 01/24/2024 01/24/2024 01/24/2024 10:09 AM CDT documented as of this encounter Care Teams Shirring Tender Relationship Specialty Start Date End Date Jamie Casper DO PCP - General 08/20/15 documented as of this encounter
--- OUTSIDE RECORDS SUMMARY | 2024-10-29 12:49 | XMS_ITS | Clinical Summary ---
Author Organization [facility] Care Team Providers Care Nurse Special Name Role Phone Unavailable Primary Care Provider Unavailabl e Social History Tobacco Use Types Packs/Day Years Used Date Smoking Tobacco: Never Assessed Comments Unknown Sex and Gender Information Value Date Recorded Sex Assigned at Not on file Legal Sex Female 1:55 PM [employer] Gender Identity Not on file Sexual Orientation Not on file Plan of Treatment Health Maintenance Due Date Last Done Comments Hepatitis C Virus (HCV) Screening 1998 TdaP Immunization 1998 Human Papillomavirus (HPV) Immunization (1 - 3-dose series) 2013 Hepatitis B Immunization (1 of 3 - 19+ 3-dose series) 2017 Pap Smear 2019 Influenza Immunization (#1) 2024 08/06/2020 SARS-COV-2 Immunization ( season) 2024 01/04/2021, 12/14/2020 Respiratory Syncytial Virus (RSV) Immunization (Adult) (1 - 1-dose 75+ series) 2073 Meningococcal Immunization (ACWY) Aged Out No longer eligible b ased on patient's age to complete this topic Pneumococcal Immunization Combined Aged Out No longer eligible b ased on patient's age to complete this topic Rotavirus Immunization Aged Out No lo nger eligible based on patient's age to complete this topic
[2024-10-30 13:59] LABS: Insulin Level Total 123.7 uIU/mL
[2024-10-31 01:17] LABS: FSH 8.5 mIU/mL; LH 4.8 mIU/mL
== END 2024-10-29 11:30 | disposition home or self-care (01) ==
PROVIDERS: PCP Family Medicine; Visit Provider Nurse Practitioner Obstetrics & Gynecology
DX: L68.0 Hirsutism (principal)
CPT/HCPCS: 36415; 82306; 83001; 83002; 83036; 83525; 84402; 84403; 84443

== ENCOUNTER 2025-04-28 08:51 | Outpatient (CLI) | payer OTHER, SELFPAY ==
--- NOTE | ~2025-04-28 | US_ITS ---
EXAMINATION: US pelvic complete w TV INDICATION: Pelvic and perineal pain Comparison:Ultrasound dated 08/17/2020 TECHNIQUE: Multiple transabdominal and endovaginal sonographic images of the pelvis performed. FINDINGS: The uterus measures 7.7 x 3.6 x 5.3 cm. There is an IUD present in the endometrium. The end ometrial complex measures 4 mm. The right ovary measures 2.2 x 1.8 x 1.9 cm and the left ovary measures 2.5 x 2.2 x 1.8 cm. There ar e small follicles in each ovary. Normal doppler signal in both ovaries. There is no free fluid in the pelvis. There are no abnormal masses seen on either side. IMPRESSION: 1. Unremarkable pelvic ultrasound. Reviewed, dictated and finalized at location A.
== END 2025-04-28 08:52 | disposition home or self-care (01) ==
PROVIDERS: PCP Nurse Practitioner Obstetrics & Gynecology; Visit Provider Nurse Practitioner Obstetrics & Gynecology
DX: R10.2 Pelvic and perineal pain (principal)
CPT/HCPCS: 76830; 76856